=== PATIENT | female | born 1990 | race Caucasian/White ===

== ENCOUNTER 2016-07-18 20:24 | Emergency (ER) | payer MEDICAID ==
[2016-07-18 20:49] VITALS: BMI 31.4
[2016-07-18] MEDS ORDERED: Sodium Chloride 0.9% 1,000 ML IV STA (21:33)
[2016-07-18 21:59] LABS: ADD MANUAL DIFF? NO
[2016-07-18 22:14] LABS: ALB/GLOB RATIO 1.1 (1.1-1.8); ALKALINE PHOSPHATASE 136 U/L (38-133); ALT/SGPT 183 U/L (7-56); AMYLASE 67 U/L (35-125); AST/SGOT 170 U/L (15-39); BILIRUBIN,TOTAL 1.2 mg/dL (0.2-1.3); BLOOD UREA NITROGEN 17 mg/dL (7-21); CALCIUM 9.9 mg/dL (8.4-10.5); CARBON DIOXIDE 25 mmol/L (21-33); CHLORIDE 96 mmol/L (98-107); GFR AFRICAN-AMERICAN > 60; GLUCOSE,RANDOM 159 mg/dL (70-110); LIPASE 89 U/L (23-300); POTASSIUM 3.9 mmol/L (3.6-5.0); SODIUM 134 mmol/L (132-148); TOTAL PROTEIN 8.6 g/dL (5.8-8.3)
[2016-07-18 22:38] LABS: BASO # 0.02 K/mm3 (0.0-2.0); BASO % 0.2 % (0.0-3.0); EOS # 0.1 (0.0-0.7); EOS % 0.6 % (1.5-5.0); GRAN # 8.42 (1.4-6.5); GRAN % 75.6 % (50.0-68.0); HEMATOCRIT 36.8 % (36.0-48.0); LYMPH % 18.1 % (22.0-35.0); MEAN CELL VOLUME 88.7 fL (80.0-105.0); MEAN CORPUSCULAR HEMOGLOBIN 30.4 pg (25.0-35.0); MEAN CORPUSCULAR HGB CONC 34.2 g/dl (31.0-37.0); MEAN PLATELET VOLUME 10.3 fl (7.0-11.0); MONO # 0.6 (0.1-0.6); MONO % 5.5 % (1.0-6.0); PLATELET COUNT 384 10^3/uL (120.0-450.0); RED CELL DISTRIBUTION WIDTH 13.4 % (11.5-14.5); WHITE BLOOD COUNT 11.1 10^3/ul (4.5-11.0)
--- NOTE | 2016-07-18 23:05 | ED PDOC ---
Arrival/HPI - General Chief Complaint: Abdominal Pain Time Seen by Provider: 07/18/16 21:32 Historian: Patient - History of Present Illness Narrative History of Present Illness (Text): 07/18/16 23:01 26-year-old female presents today with right upper quadrant abdominal pain that has been on and off for the past few years but has worsened today. Patient states the pain is not worse with eating and does not improve after eating. Patient states the pain is constant and now wrapping around the right side of the abdomen into the back. No medications have been taken for pain at home. No vomiting or diarrhea. No appetite changes. No urinary symptoms. Denies fevers or chills. Patient states she's been trying to get an ultrasound outpatient after seeing the primary care physician but is still waiting for approval. Patient states she can't wait any longer as the pain returned today and has been constant. Time/Duration: Other (1 day) Symptom Onset: Sudden Symptom Course: Worsening Quality: Stabbing Severity Level: 8 Past Medical History - Provider Review Nursing Documentation Reviewed: Yes - Travel History Have you recently traveled outside [place] w/in the past 3 mons?: No - Past History Past History: No Previous - Infectious Disease Hx of Infectious Diseases: None - Tetanus Immunization Tetanus Immunization: Unknown - Cardiac Hx Cardiac Disorders: Yes Hx Cardiac Arrhythmia: Yes (sinus tachycardia.) Hx Congestive Heart Failure: No Hx Hypertension: Yes Hx Internal Defibrillator: No Hx Mitral Valve Prolapse: No Hx Pacemaker: No Hx Peripheral Edema: No - Pulmonary Hx Respiratory Disorders: No Hx Asthma: No Hx Bronchitis: No Hx Chronic Obstructive Pulmonary Disease (COPD): No Hx Emphysema: No - Neurological Hx Neurological Disorder: No Hx Alzheimer's Disease: No HX Cerebrovascular Accident: No Hx Dementia: No Hx Migraine: No Hx Parkinson's Disease: No Hx Seizures: No Hx Transient Ischemic Attacks (TIA): No - HEENT Hx HEENT Disorder: No Hx Blind: No Hx Cataracts: No Hx Deafness: No Hx Difficulty Chewing: No Hx Epistaxis: No Hx Glaucoma: No Hx Macular Degeneration: No - Renal Hx Renal Disorder: No Hx Renal Failure: No - Endocrine/Metabolic Hx Endocrine Disorders: Yes Hx Diabetes Mellitus Type 2: Yes - Hematological/Oncological Hx Blood Disorders: Yes Hx Anemia: Yes - Integumentary Hx Dermatological Disorder: No Hx Basal Cell Carcinoma: No Hx Eczema: No Hx Melanoma: No Hx Psoriasis: No Hx Squamous Cell Carcinoma: No - Musculoskeletal/Rheumatological Hx Musculoskeletal Disorders: No Hx Arthritis: No - Gastrointestinal Hx Gastrointestinal Disorders: No Hx Crohn's Disease: No Hx Diverticulitis: No Hx Gastroesophageal Reflux: No Hx Gastrointestinal Ulcer: No Hx Liver Failure: No - Genitourinary/Gynecological Hx Genitourinary Disorders: Yes (vaginal bleeding) Hx Sexually Transmitted Diseases: No - Psychiatric Hx Substance Use: No - Past Surgical History Past Surgical History: No Previous - Surgical History Hx Amputation: No Hx Appendectomy: No Hx Cardiac Catheterization: No Hx Cholecystectomy: No Hx Coronary Stent: No Hx Gastric Bypass Surgery: No Hx Hysterectomy: No Hx Joint Replacement: No Hx Kidney Transplant: No Hx Liver Transplant: No Hx Mastectomy: No Hx Open Heart Surgery: No Hx Orthopedic Surgery: No Hx Splenectomy: No Hx Valve Replacement: No - Anesthesia Hx Anesthesia Reactions: No Hx Malignant Hyperthermia: No - Suicidal Assessment Feels Threatened In Home Enviroment: No Family/Social History - Physician Review Nursing Documentation Reviewed: Yes Family/Social History: Unknown Family HX Smoking Status: Never Smoked Hx Alcohol Use: No Hx Substance Use: No Hx Substance Use Treatment: No Allergies/Home Meds Allergies/Adverse Reactions: Allergies No Known Allergies Allergy (Verified 05/02/16 09:05) Home Medications: Home Meds Medication Instructions Recorded Confirmed Lisinopril [Zestril] 10 mg PO DAILY 05/02/16 07/18/16 Metoprolol Villasenor/Hydrochlorothiaz 1 tab PO DAILY 05/02/16 07/18/16 [Metoprolol ER-Hctz 50-12.5 mg] metFORMIN [glucOPHAGE] 500 mg PO DAILY 05/02/16 07/18/16 Review of Systems - Review of Systems Constitutional: absent: Fatigue, Fevers Respiratory: absent: SOB, Cough Cardiovascular: absent: Chest Pain, Palpitations Gastrointestinal: Abdominal Pain. absent: Constipation, Diarrhea, Nausea, Vomiting Genitourinary Female: absent: Dysuria, Frequency, Hematuria Musculoskeletal: Back Pain. absent: Arthralgias, Neck Pain Skin: absent: Rash, Pruritis Neurological: absent: Headache, Dizziness Psychiatric: absent: Anxiety, Depression Physical Exam Vital Signs Reviewed: Yes Vital Signs Temp Pulse Resp BP Pulse Ox 07/19/16 02:29 98.4 F 100 H 18 117/73 98 07/18/16 23:03 98 H 16 126/74 99 07/18/16 20:48 97.7 F 108 H 18 128/85 99 Temperature: Afebrile Blood Pressure: Normal Pulse: Tachycardic Respiratory Rate: Normal Appearance: Positive for: Well-Appearing, Non-Toxic, Uncomfortable Pain Distress: None Mental Status: Positive for: Alert and Oriented X 3 - Systems Exam Head: Present: Atraumatic Mouth: Present: Moist Mucous Membranes Neck: Present: Normal Range of Motion Respiratory/Chest: Present: Clear to Auscultation, Good Air Exchange. No: Respiratory Distress, Accessory Muscle Use Cardiovascular: Present: Regular Rate and Rhythm, Normal S1, S2. No: Murmurs Abdomen: Present: Tenderness (+ ruq tenderness), Normal Bowel Sounds, Guarding. No: Distention, Peritoneal Signs, Rebound, McBurney's Point Tender Back: Present: Normal Inspection. No: CVA Tenderness Upper Extremity: Present: Normal ROM Lower Extremity: Present: Normal ROM Neurological: Present: GCS=15, Speech Normal Skin: Present: Warm, Dry, Normal Color. No: Rashes Psychiatric: Present: Alert, Oriented x 3 Medical Decision Making ED Course and Treatment: 07/18/16 23:04 Patient is non toxic; tachycardic presenting with RUQ abdominal pain CBC wbc; 11.1 CMP: glucose; 169 Amylase wnl Lipase wnl Urinalysis: no leukocytes. Ultrasound:FINDINGS: Liver: The liver is increased in echogenicity and size measuring 25 cm in longitudinal dimension. No intrahepatic bile duct dilation. Gallbladder: No acute findings. No gallstones. Common bile duct: No stones. No dilation, measuring 6 mm. Pancreas: Visualization of the pancreas is limited by overlying bowel gas. Right kidney: Unremarkable in echogenicity and size measuring 12.7 x 5.1 x 5.0 cm No hydronephrosis. Left Kidney: Unremarkable in echogenicity and size measuring 12.1 x 5.8 x 6.3 cm. No hydronephrosis. Spleen: Unremarkable in echogenicity and increased in size measuring 13.8 cm in greatest dimension. Aorta: Unremarkable. Inferior vena cava: patent. IMPRESSION: Fatty infiltration of an enlarged liver. Splenic enlargement. Limited evaluation of the pancreas, secondary to overlying bowel gas. CAT scan FINDINGS: Lower thorax: The bilateral lung bases are clear. ABDOMEN: Liver: Fatty infiltration of an enlarged liver is identified, consistent with patient's ultrasound. Gallbladder and bile ducts: The gallbladder is only minimally distended, without calcified stones. No significant intra- or extrahepatic biliary ductal dilation. Pancreas: Enhances homogeneously. No ductal dilation. No discrete mass. Spleen: No acute findings. Adrenals: No acute findings. Kidneys and ureters: No acute findings. No hydronephrosis or renal calculi. No discrete solid mass. PELVIS: Bladder: No acute findings. Reproductive: No acute findings. Appendix: The air filled appendix is of normal caliber (series 2, image 128). ABDOMEN and PELVIS: Stomach and bowel: Small hiatal hernia. No obstruction. No mucosal thickening. Peritoneum: No significant fluid collection. No free air. Lymph nodes: No pathologically enlarged lymph nodes. Vasculature: Unremarkable. Bones: No acute fracture. IMPRESSION: Fatty infiltration of an enlarged liver Patient reassessment: after medications, pts pain has resolved. Discussed all results with patient in depth pt with ruq abd pain with elevated lfts, ? possible kassandra, ct and US wnl; pt offered admission to the hospital for further evaluation of RUQ abd pain and elevated lfts. pt refused. wants to go home. doesnt want to stay in hospital. Patient has been advised to not leave the emergency room but has decided to go AGAINST MEDICAL ADVICE. The patient possesses capacity to make decisions and has voiced understanding to all my warnings of potential worsening of the condition for which medical care was sought. I have discussed all known and potential risks and consequences to the patient leaving AGAINST MEDICAL ADVICE. Patient is leaving against medical advise. AMA form signed. witness by NEFTALY petit. Impression: Abdominal pain, elevated liver function tests Return immediately if you wish to continue care Motrin every 6 hours as needed for pain Follow up with her GI doctor within the next 2 days Follow-up with primary care physician within the next 2 days Return immediately if symptoms worsen or persist or if new concerning symptoms develop - Lab Interpretations Lab Results: 07/18/16 21:45 07/18/16 21:45 Lab Results 07/18/16 23:10: Urine Color Yellow, Urine Appearance Sl cloudy, Urine pH 7.0, Ur Specific H[place] 1.020, Urine Protein 100 H, Urine Glucose (UA) Negative, Urine Ketones Negative, Urine Blood Negative, Urine Nitrate Negative, Urine Bilirubin Small H, Urine Urobilinogen 2.0 H, Ur Leukocyte Esterase Negative, Urine RBC 0 - 2, Urine WBC 0 - 2, Ur Epithelial Cells 3 - 4, Urine Bacteria Occ 07/18/16 21:45: WBC 11.1 H D, RBC 4.15, Hgb 12.6, Hct 36.8, MCV 88.7, MCH 30.4, MCHC 34.2, RDW 13.4, Plt Count 384, MPV 10.3, Gran % 75.6 H, Lymph % (Auto) 18.1 L, Stearns % (Auto) 5.5, Eos % (Auto) 0.6 L, Baso % (Auto) 0.2, Gran # 8.42 H , Lymph # 2.0, Stearns # 0.6, Eos # 0.1, Baso # 0.02 07/18/16 21:45: Sodium 134, Potassium 3.9, Chloride 96 L, Carbon Dioxide 25, Anion Gap 17, BUN 17, Creatinine 0.6, Est GFR ( Amer) > 60, Est GFR (Non- Af Amer) > 60, Random Glucose 159 H, Calcium 9.9, Total Bilirubin 1.2, AST 170 H , ALT 183 H, Alkaline Phosphatase 136 H, Total Protein 8.6 H, Albumin 4.5, Globulin 4.1, Albumin/Globulin Ratio 1.1, Amylase 67, Lipase 89 - RAD Interpretation Radiology Orders: 07/18/16 22:12 ABDOMEN COMPLETE [US] Stat 07/18/16 23:48 ABD & PELVIS IV CONTRAST ONLY [CT] Stat - Medication Orders Current Medication Orders: Discontinued Medications Famotidine (Pepcid) 20 mg IVP STAT STA Stop: 07/18/16 22:13 Last Admin: 07/18/16 23:45 Dose: 20 mg Sodium Chloride (Sodium Chloride 0.9%) 1,000 mls @ 999 mls/hr IV .Q1H1M STA Stop: 07/18/16 22:33 Last Admin: 07/18/16 21:56 Dose: 999 mls/hr Iohexol (Omnipaque 350 100 Ml) Confirm Administered Dose 350 mg .ROUTE .STK-MED ONE Stop: 07/19/16 00:31 Ketorolac Tromethamine (Toradol) 30 mg IVP STAT STA Stop: 07/18/16 23:03 Last Admin: 07/18/16 23:45 Dose: 30 mg Disposition/Present on Arrival - Present on Arrival Any Indicators Present on Arrival: No History of DVT/PE: No History of Uncontrolled Diabetes: No Urinary Catheter: No History of Decub. Ulcer: No History Surgical Site Infection Following: None - Disposition Have Diagnosis and Disposition been Completed?: Yes Diagnosis: Abdominal pain, Elevated liver function tests, Fatty liver Disposition: AGAINST MEDICAL ADVICE Disposition Time: 02:37 Patient Plan: Other (AMA) Patient Problems: Current Active Problems Problem Status Onset Abdominal pain Acute Elevated liver function tests Acute Fatty liver Acute Condition: FAIR Discharge Instructions (ExitCare): Non-Alcoholic Fatty Liver Disease (ED), Acute Abdominal Pain (ED) Additional Instructions: Return immediately if you wish to continue care Motrin every 6 hours as needed for pain Follow up with her GI doctor within the next 2 days Follow-up with primary care physician within the next 2 days Return immediately if symptoms worsen or persist or if new concerning symptoms develop Prescriptions: Ibuprofen [Motrin] 600 mg PO Q6H PRN #20 tab PRN Reason: pain/fever reduction Referrals: Binh Martin MD [Primary Care Provider] - Follow up with primary Nathan Pruett MD [Staff Provider] - Follow up with primary Lyndsay Maria MD [Staff Provider] - Follow up with primary Forms: WORK NOTE
[2016-07-18 23:22] LABS: URINE BILIRUBIN SMALL (NEGATIVE); URINE BLOOD NEGATIVE (NEGATIVE); URINE GLUCOSE (UA) NEGATIVE (NEGATIVE); URINE KETONE NEGATIVE (NEGATIVE); URINE LEUKOCYTE ESTERASE NEGATIVE Leu/uL (NEGATIVE); URINE PROTEIN 100 mg/dL (<30 mg/dL)
--- NOTE | 2016-07-18 23:36 | US ---
EXAM: US Abdomen Complete CLINICAL HISTORY: 26 years old, female; Pain; Abdominal pain; Generalized; Additional info: Ruq abd pain TECHNIQUE: Real-time ultrasound of the abdomen (complete) with image documentation. COMPARISON: No relevant prior studies available. FINDINGS: Liver: The liver is increased in echogenicity and size measuring 25 cm in longitudinal dimension. No intrahepatic bile duct dilation. Gallbladder: No acute findings. No gallstones. Common bile duct: No stones. No dilation, measuring 6 mm. Pancreas: Visualization of the pancreas is limited by overlying bowel gas. Right kidney: Unremarkable in echogenicity and size measuring 12.7 x 5.1 x 5.0 cm No hydronephrosis. Left Kidney: Unremarkable in echogenicity and size measuring 12.1 x 5.8 x 6.3 cm. No hydronephrosis. Spleen: Unremarkable in echogenicity and increased in size measuring 13.8 cm in greatest dimension. Aorta: Unremarkable. Inferior vena cava: patent. IMPRESSION: Fatty infiltration of an enlarged liver. Splenic enlargement. Limited evaluation of the pancreas, secondary to overlying bowel gas.
[2016-07-18 23:38] LABS: URINE APPEARANCE SL CLOUDY (CLEAR); URINE COLOR YELLOW (YELLOW)
[2016-07-18 23:42] LABS: URINE BACTERIA OCC (NEG); URINE RBC 0 - 2 /hpf (0-2); URINE WBC 0 - 2 /hpf (0-6)
[2016-07-19] MEDS ORDERED: Iohexol 350 MG/100 ML VIAL ONE (00:30)
--- NOTE | 2016-07-19 01:50 | CT ---
EXAM: CT Abdomen and Pelvis With Intravenous Contrast CLINICAL HISTORY: 26 years old, female; Pain; Abdominal pain; Generalized; Additional info: Abd pain TECHNIQUE: Axial computed tomography images of the abdomen and pelvis with intravenous contrast. This CT exam was performed using one or more of the following dose reduction techniques: automated exposure control, adjustment of the mA and/or kV according to patient size, and/or use of iterative reconstruction technique. Coronal and sagittal reformatted images were created and reviewed. CONTRAST: 96 mL of omni 350 administered intravenously. COMPARISON: US - ABDOMEN COMPLETE 07/18/2016 11:11:56 PM FINDINGS: Lower thorax: The bilateral lung bases are clear. ABDOMEN: Liver: Fatty infiltration of an enlarged liver is identified, consistent with patient's ultrasound. Gallbladder and bile ducts: The gallbladder is only minimally distended, without calcified stones. No significant intra- or extrahepatic biliary ductal dilation. Pancreas: Enhances homogeneously. No ductal dilation. No discrete mass. Spleen: No acute findings. Adrenals: No acute findings. Kidneys and ureters: No acute findings. No hydronephrosis or renal calculi. No discrete solid mass. PELVIS: Bladder: No acute findings. Reproductive: No acute findings. Appendix: The air filled appendix is of normal caliber (series 2, image 128). ABDOMEN and PELVIS: Stomach and bowel: Small hiatal hernia. No obstruction. No mucosal thickening. Peritoneum: No significant fluid collection. No free air. Lymph nodes: No pathologically enlarged lymph nodes. Vasculature: Unremarkable. Bones: No acute fracture. IMPRESSION: Fatty infiltration of an enlarged liver.
[2016-07-19 02:30] VITALS: BP 117/73; PULSE 100; RESP 18; TEMP 98.4; O2SAT 98
== END 2016-07-19 02:35 | disposition left against medical advice (07) ==
LOC: ED 20:24
DX: R10.11 Right upper quadrant pain (principal); R79.89 Other specified abnormal findings of blood chemistry; K76.0 Fatty (change of) liver, not elsewhere classified; I10 Essential (primary) hypertension; E11.9 Type 2 diabetes mellitus without complications
CPT/HCPCS: 74177; 76700; 80053; 81001; 82150; 83690; 85025; 96374; 96375; 99285; J1885; J7040; Q9967

== ENCOUNTER 2017-10-10 01:23 | Observation (INO) | payer MEDICAID ==
--- NOTE | 2017-10-10 01:50 | ED PDOC ---
Arrival/HPI - General Chief Complaint: Palpitations Time Seen by Provider: 10/10/17 01:39 Historian: Patient - History of Present Illness Narrative History of Present Illness (Text): 10/10/17 01:47 A 27 year old female, whose past medical history includes hypertension and diabetes, presents to the Emergency Department with a complaint of palpitations. The patient states that she was sleeping and got out of bed to walk to the bathroom and felt very nauseous and began to feel the heart palpitations. The patient denies fevers, chills, headache, dizziness, sore throat, cough, chest pain, shortness of breath, dyspnea on exertion, abdominal pain, vomiting, diarrhea, neck/back pain, urinary/bowel changes or any other complaint. PMD: Dr. Martin Time/Duration: Prior to Arrival Symptom Onset: Sudden Symptom Course: Unchanged Activities at Onset: Rest, Light Context: Home Past Medical History - Provider Review Nursing Documentation Reviewed: Yes - Past History Past History: No Previous - Infectious Disease Hx of Infectious Diseases: None - Tetanus Immunization Tetanus Immunization: Unknown - Reproductive Menopause: No - Cardiac Hx Cardiac Disorders: Yes Hx Cardiac Arrhythmia: Yes (sinus tachycardia.) Hx Congestive Heart Failure: No Hx Hypertension: Yes Hx Internal Defibrillator: No Hx Mitral Valve Prolapse: No Hx Pacemaker: No Hx Peripheral Edema: No - Pulmonary Hx Respiratory Disorders: No Hx Asthma: No Hx Bronchitis: No Hx Chronic Obstructive Pulmonary Disease (COPD): No Hx Emphysema: No - Neurological Hx Neurological Disorder: No Hx Alzheimer's Disease: No HX Cerebrovascular Accident: No Hx Dementia: No Hx Migraine: No Hx Parkinson's Disease: No Hx Seizures: No Hx Transient Ischemic Attacks (TIA): No - HEENT Hx HEENT Disorder: No Hx Blind: No Hx Cataracts: No Hx Deafness: No Hx Difficulty Chewing: No Hx Epistaxis: No Hx Glaucoma: No Hx Macular Degeneration: No - Renal Hx Renal Disorder: No Hx Renal Failure: No - Endocrine/Metabolic Hx Endocrine Disorders: Yes Hx Diabetes Mellitus Type 2: Yes - Hematological/Oncological Hx Blood Disorders: Yes Hx Anemia: Yes - Integumentary Hx Dermatological Disorder: No Hx Basal Cell Carcinoma: No Hx Eczema: No Hx Melanoma: No Hx Psoriasis: No Hx Squamous Cell Carcinoma: No - Musculoskeletal/Rheumatological Hx Musculoskeletal Disorders: No Hx Arthritis: No - Gastrointestinal Hx Gastrointestinal Disorders: No Hx Crohn's Disease: No Hx Diverticulitis: No Hx Gastroesophageal Reflux: No Hx Gastrointestinal Ulcer: No Hx Liver Failure: No - Genitourinary/Gynecological Hx Genitourinary Disorders: Yes (vaginal bleeding) Hx Sexually Transmitted Diseases: No - Psychiatric Hx Substance Use: No - Past Surgical History Past Surgical History: No Previous - Surgical History Hx Amputation: No Hx Appendectomy: No Hx Cardiac Catheterization: No Hx Cholecystectomy: No Hx Coronary Stent: No Hx Gastric Bypass Surgery: No Hx Hysterectomy: No Hx Joint Replacement: No Hx Kidney Transplant: No Hx Liver Transplant: No Hx Mastectomy: No Hx Open Heart Surgery: No Hx Orthopedic Surgery: No Hx Splenectomy: No Hx Valve Replacement: No - Anesthesia Hx Anesthesia Reactions: No Hx Malignant Hyperthermia: No - Suicidal Assessment Feels Threatened In Home Enviroment: No Family/Social History - Physician Review Nursing Documentation Reviewed: Yes Family/Social History: No Known Family HX Smoking Status: Never Smoked Hx Alcohol Use: No Hx Substance Use: No Hx Substance Use Treatment: No Allergies/Home Meds Allergies/Adverse Reactions: Allergies No Known Allergies Allergy (Verified 05/02/16 09:05) Home Medications: Home Meds Medication Instructions Recorded Confirmed Lisinopril [Zestril] 10 mg PO DAILY 05/02/16 07/18/16 Metoprolol Villasenor/Hydrochlorothiaz 1 tab PO DAILY 05/02/16 07/18/16 [Metoprolol ER-Hctz 50-12.5 mg] metFORMIN [glucOPHAGE] 500 mg PO DAILY 05/02/16 07/18/16 Review of Systems - Physician Review All systems were reviewed & negative as marked: Yes - Review of Systems Constitutional: absent: Fevers Respiratory: absent: SOB, Cough Cardiovascular: Palpitations. absent: Chest Pain, KIRBY Gastrointestinal: Nausea. absent: Abdominal Pain, Stool Changes, Diarrhea, Vomiting Genitourinary Female: absent: Urine Output Changes Musculoskeletal: absent: Back Pain, Neck Pain Neurological: absent: Headache, Dizziness Physical Exam Vital Signs Reviewed: Yes Vital Signs Temp Pulse Resp BP Pulse Ox 10/10/17 04:57 98.1 F 117 H 16 111/70 100 10/10/17 01:30 97.9 F 121 H 16 123/84 99 Temperature: Afebrile Blood Pressure: Normal Pulse: Tachycardic Respiratory Rate: Normal Appearance: Positive for: Well-Appearing, Non-Toxic, Comfortable Pain Distress: None Mental Status: Positive for: Alert and Oriented X 3 - Systems Exam Head: Present: Atraumatic, Normocephalic Pupils: Present: PERRL Extroacular Muscles: Present: EOMI Conjunctiva: Present: Normal Mouth: Present: Moist Mucous Membranes Neck: Present: Normal Range of Motion Respiratory/Chest: Present: Clear to Auscultation, Good Air Exchange. No: Respiratory Distress, Accessory Muscle Use Cardiovascular: Present: Normal S1, S2, Tachycardic. No: Murmurs Abdomen: No: Tenderness, Distention, Peritoneal Signs Back: Present: Normal Inspection Upper Extremity: Present: Normal Inspection. No: Cyanosis, Edema Lower Extremity: Present: Normal Inspection. No: Edema Neurological: Present: GCS=15, CN II-XII Intact, Speech Normal Skin: Present: Warm, Dry, Normal Color. No: Rashes Psychiatric: Present: Alert, Oriented x 3, Normal Insight, Normal Concentration Medical Decision Making ED Course and Treatment: 10/10/17 01:51 Impression: A 27 year old female presents to the Emergency Department with a complaint of sudden onset of palpitations and nausea this evening. Plan: -- EKG -- CXR -- Labs -- Reassess and disposition Progress Notes: EKG: Ordered, reviewed, and independently interpreted the EKG. Rate : 112 BPM Rhythm : Sinus Tachycardia Interpretation : Anterolateral ST- T changes. 10/10/17 05:09: Case discussed in detail with Dr. Olson who accepts patient to the hospitalist's service. - Lab Interpretations Lab Results: 10/10/17 02:15 10/10/17 02:15 Lab Results 10/10/17 02:15: WBC 8.3 D, RBC 4.30, Hgb 13.7, Hct 37.2, MCV 86.5, MCH 31.9, MCHC 36.8, RDW 12.9, Plt Count 292, MPV 10.0 10/10/17 02:15: Sodium 138, Potassium 3.4 L, Chloride 99, Carbon Dioxide 24, Anion Gap 19, BUN 12, Creatinine 0.4 L, Est GFR ( Amer) > 60, Est GFR ( Non-Af Amer) > 60, Random Glucose 254 H, Calcium 9.9, Total Bilirubin 0.7, AST 186 H, ALT 213 H, Alkaline Phosphatase 217 H, Lactate Dehydrogenase 547, Total Creatine Kinase 51, Troponin I < 0.01, Total Protein 8.4 H, Albumin 4.4, Globulin 4.0, Albumin/Globulin Ratio 1.1 10/10/17 02:15: PT 12.6 H, INR 1.10, APTT 31.3, D-Dimer, Quantitative < 200 I have reviewed the lab results: Yes - RAD Interpretation Radiology Orders: 10/10/17 01:47 CHEST PORTABLE [RAD] Stat - EKG Interpretation Interpreted by ED Physician: Yes Type: 12 lead EKG - Medication Orders Current Medication Orders: Discontinued Medications Potassium Chloride (K-Dur 20 Meq Er Tab) 20 meq PO STAT STA Stop: 10/10/17 05:03 - Scribe Statement The provider has reviewed the documentation as recorded by the Yohana Santana Provider Scribe Attestation: All medical record entries made by the Scribe were at my direction and personally dictated by me. I have reviewed the chart and agree that the record accurately reflects my personal performance of the history, physical exam, medical decision making, and the department course for this patient. I have also personally directed, reviewed, and agree with the discharge instructions and disposition. Disposition/Present on Arrival - Present on Arrival Any Indicators Present on Arrival: No History of DVT/PE: No History of Uncontrolled Diabetes: No Urinary Catheter: No History of Decub. Ulcer: No History Surgical Site Infection Following: None - Disposition Have Diagnosis and Disposition been Completed?: Yes Diagnosis: Tachycardia Disposition: HOSPITALIZED Disposition Time: 05:14 Patient Plan: Observation Condition: STABLE Forms: [employer] ([place])
[2017-10-10 02:28] LABS: HEMOGLOBIN 13.7 g/dL (12.0-16.0); MEAN CELL VOLUME 86.5 fl (80.0-105.0); MEAN CORPUSCULAR HEMOGLOBIN 31.9 pg (25.0-35.0); MEAN CORPUSCULAR HGB CONC 36.8 g/dl (31.0-37.0); RBC 4.3 10^6/uL (3.5-6.1); RED CELL DISTRIBUTION WIDTH 12.9 % (11.5-14.5); WHITE BLOOD COUNT 8.3 10^3/ul (4.5-11.0)
[2017-10-10 02:34] LABS: ALB/GLOB RATIO 1.1 (1.1-1.8); ALBUMIN 4.4 g/dL (3.0-4.8); ALT/SGPT 213 U/L (7-56); AST/SGOT 186 U/L (14-36); BLOOD UREA NITROGEN 12 mg/dL (7-21); CALCIUM 9.9 mg/dL (8.4-10.5); GFR AFRICAN-AMERICAN > 60; GFR NON-AFRICAN AMERICAN > 60
[2017-10-10 02:43] LABS: PARTIAL THROMBOPLASTIN TIME 31.3 Seconds (25.1-36.5); PROTHROMBIN TIME 12.6 SECONDS (9.4-12.5)
[2017-10-10 02:46] LABS: TROPONIN I < 0.01 ng/mL
[2017-10-10 02:55] LABS: D DIMER < 200 mg/L DDU (0-243)
[2017-10-10] MEDS ORDERED: Potassium Chloride 20 mEq ER Tab PO STA (05:02)
[2017-10-10 08:05] LABS: BASO # 0.01 K/mm3 (0.0-2.0); BASO % 0.1 % (0.0-3.0); EOS % 0.5 % (1.5-5.0); GRAN # 5.53 (1.4-6.5); GRAN % 64.8 % (50.0-68.0); HEMOGLOBIN 12.2 g/dL (12.0-16.0); LYMPH # 2.7 (1.2-3.4); MEAN CELL VOLUME 85.6 fl (80.0-105.0); MEAN CORPUSCULAR HEMOGLOBIN 30.3 pg (25.0-35.0); MEAN CORPUSCULAR HGB CONC 35.5 g/dl (31.0-37.0); MEAN PLATELET VOLUME 9.6 fl (7.0-11.0); MONO # 0.3 (0.1-0.6); MONO % 3.6 % (1.0-6.0); RBC 4.02 10^6/uL (3.5-6.1); RED CELL DISTRIBUTION WIDTH 12.7 % (11.5-14.5); WHITE BLOOD COUNT 8.5 10^3/ul (4.5-11.0)
[2017-10-10] MEDS: Insulin Reg-LOW-Coverage SC SCH ×4 (08:07→22:26)
[2017-10-10 08:31] LABS: ALB/GLOB RATIO 1.2 (1.1-1.8); ALBUMIN 4.2 g/dL (3.0-4.8); ALT/SGPT 199 U/L (7-56); AST/SGOT 175 U/L (14-36); BLOOD UREA NITROGEN 8 mg/dL (7-21); CALCIUM 9.3 mg/dL (8.4-10.5); GFR AFRICAN-AMERICAN > 60; GFR NON-AFRICAN AMERICAN > 60; HDL CHOLESTEROL 35 mg/dL (29-60); LDL CHOLESTEROL 123 mg/dL (0-129)
--- NOTE | 2017-10-10 09:16 | CP.PCM.HP ---
<Roland Gomez - Last Filed: 10/10/17 16:34> History of Present Illness - History of Present Illness History of Present Illness: HISTORY & PHYSICAL NOTE FOR HOSPITALIST TEAM Roland Gomez D.O. PGY-1 CC: Chest palpitations x 1 without chest pain, shortness of breath, diophoresis 27 y/o F with pmhx of HTN, DM2 presented to ED with complaints of new onset palpitations that had began yesterday night with associated weakness. She first noticed palpitations while getting out of bed. She denies any history of anxiety or panic attacks. She denies complaints of chest pain, discomfort or diophoresis. She reports that she had a similar event 1 week prior, but the symptoms resolved after rest. She denies onset of symptoms with exertion. She reports compliance with her cardiac medications, however is noncompliant with diabetic meds. She denies fevers, chills, vomiting, headache, dizziness, numbness, tingling, shortness of breath, constipation, diarrhea. PMD: Dr. Duarte PMH: HTN, DM PSH: Denies SH: Denies smoking, alcohol or illicit drug use. Allergies: NKDA Meds: Metformin 500mg, valsartan/hctz 50/12.5, control Present on Admission - Present on Admission Any Indicators Present on Admission: No Review of Systems - Review of Systems All systems: reviewed and no additional remarkable complaints except (as per HPI. otherwise negative) Past Patient History - Infectious Disease Hx of Infectious Diseases: None - Tetanus Immunizations Tetanus Immunization: Unknown - Past Social History Smoking Status: Never Smoked - CARDIAC Hx Cardiac Disorders: Yes Hx Cardia Arrhythmia: Yes (sinus tachycardia.) Hx Congestive Heart Failure: No Hx Hypertension: Yes Hx Internal Defibrillator: No Hx Mitral Valve Prolapse: No Hx Pacemaker: No Hx Peripheral Edema: No - PULMONARY Hx Respiratory Disorders: No Hx Asthma: No Hx Bronchitis: No Hx Chronic Obstructive Pulmonary Disease (COPD): No Hx Emphysema: No - NEUROLOGICAL Hx Neurological Disorder: No Hx Alzheimer's Disease: No HX Cerebrovascular Accident: No Hx Dementia: No Hx Migraine: No Hx Parkinson's Disease: No Hx Seizures: No Hx Transient Ischemic Attacks (TIA): No - HEENT Hx HEENT Problems: No Hx Blind: No Hx Cataracts: No Hx Deafness: No Hx Difficulty Chewing: No Hx Epistaxis: No Hx Glaucoma: No Hx Macular Degeneration: No - RENAL Hx Chronic Kidney Disease: No Hx Renal Failure: No - ENDOCRINE/METABOLIC Hx Endocrine Disorders: Yes Hx Diabetes Mellitus Type 2: Yes - HEMATOLOGICAL/ONCOLOGICAL Hx Blood Disorders: Yes Hx Anemia: Yes - INTEGUMENTARY Hx Dermatological Problems: No Hx Basil Cell: No Hx Eczema: No Hx Melanoma: No Hx Psoriasis: No Hx Squamous Cell: No - MUSCULOSKELETAL/RHEUMATOLOGICAL Hx Musculoskeletal Disorders: No Hx Arthritis: No - GASTROINTESTINAL Hx Gastrointestinal Disorders: No Hx Crohn's Disease: No Hx Diverticulitis: No Hx Gastroesophageal Reflux: No Hx Liver Failure: No - GENITOURINARY/GYNECOLOGICAL Hx Genitourinary Disorders: Yes (vaginal bleeding) Hx Sexually Transmitted Disorders: No - PSYCHIATRIC Hx Substance Use: No - SURGICAL HISTORY Hx Amputation: No Hx Appendectomy: No Hx Cardiac Catheterization: No Hx Cholecystectomy: No Hx Coronary Stent: No Hx Gastric Bypass Surgery: No Hx Hysterectomy: No Hx Joint Replacement: No Hx Kidney Transplant: No Hx Liver Transplant: No Hx Mastectomy: No Hx Open Heart Surgery: No Hx Orthopedic Surgery: No Hx Splenectomy: No Hx Valve Replacement: No - ANESTHESIA Hx Anesthesia Reactions: No Hx Malignant Hyperthermia: No Meds Allergies/Adverse Reactions: Allergies Allergy/AdvReac Type Severity Reaction Status Date / Time No Known Allergies Allergy Verified 05/02/16 09:05 Physical Exam - Constitutional Appears: Well, No Acute Distress - Head Exam Head Exam: ATRAUMATIC, NORMAL INSPECTION - Eye Exam Eye Exam: EOMI, Normal appearance - ENT Exam ENT Exam: Mucous Membranes Moist, Normal Exam - Neck Exam Neck exam: Positive for: Normal Inspection. Negative for: Meningismus - Respiratory Exam Respiratory Exam: Clear to Auscultation Bilateral, NORMAL BREATHING PATTERN - Cardiovascular Exam Cardiovascular Exam: Tachycardia, +S1, +S2 - GI/Abdominal Exam GI & Abdominal Exam: Normal Bowel Sounds, Soft. absent: Tenderness - Neurological Exam Neurological exam: Alert, CN II-XII Intact, Oriented x3 - Psychiatric Exam Psychiatric exam: Normal Affect, Normal Mood - Skin Skin Exam: Dry, Intact, Warm Results - Vital Signs Recent Vital Signs: Last Vital Signs Temp 98.3 F 10/10/17 06:45 Pulse 97 H 10/10/17 06:45 Resp 20 10/10/17 06:45 BP 117/71 10/10/17 06:45 Pulse Ox 96 10/10/17 06:45 - Labs Result Diagrams: 10/10/17 07:40 10/10/17 07:40 Labs: Laboratory Results - last 24 hr 10/10/17 10/10/17 10/10/17 06:22 07:40 07:40 WBC 8.5 RBC 4.02 Hgb 12.2 Hct 34.4 L MCV 85.6 MCH 30.3 MCHC 35.5 RDW 12.7 Plt Count 278 MPV 9.6 Gran % 64.8 Lymph % (Auto) 31.0 Reeves % (Auto) 3.6 Eos % (Auto) 0.5 L Baso % (Auto) 0.1 Gran # 5.53 Lymph # (Auto) 2.7 Reeves # (Auto) 0.3 Eos # (Auto) 0.0 Baso # (Auto) 0.01 Sodium 138 Potassium 3.8 Chloride 102 Carbon Dioxide 23 Anion Gap 17 BUN 8 Creatinine 0.3 L Est GFR ( Amer) > 60 Est GFR (Non-Af Amer) > 60 Random Glucose 229 H Calcium 9.3 Phosphorus 3.7 Magnesium 1.6 L Total Bilirubin 0.6 AST 175 H ALT 199 H Alkaline Phosphatase 179 H Total Protein 7.8 Albumin 4.2 Globulin 3.6 Albumin/Globulin Ratio 1.2 Triglycerides 250 H Cholesterol 202 H LDL Cholesterol Direct 123 HDL Cholesterol 35 TSH 3rd Generation Urine HCG, Qual Negative 10/10/17 07:40 WBC RBC Hgb Hct MCV MCH MCHC RDW Plt Count MPV Gran % Lymph % (Auto) Reeves % (Auto) Eos % (Auto) Baso % (Auto) Gran # Lymph # (Auto) Reeves # (Auto) Eos # (Auto) Baso # (Auto) Sodium Potassium Chloride Carbon Dioxide Anion Gap BUN Creatinine Est GFR ( Amer) Est GFR (Non-Af Amer) Random Glucose Calcium Phosphorus Magnesium Total Bilirubin AST ALT Alkaline Phosphatase Total Protein Albumin Globulin Albumin/Globulin Ratio Triglycerides Cholesterol LDL Cholesterol Direct HDL Cholesterol TSH 3rd Generation 1.61 Urine HCG, Qual Assessment & Plan - Assessment and Plan (Free Text) Assessment: 27 y/o F with pmhx of HTN, DM2 admitted for palpitations and ACS r/o. Pt presented to ED after 1 night of symptoms. She was seen in ED with pulse in 110- 120 bpm rate. Initial troponin levels in ED were negative. EKG showed t-wave changes. Pt was saturating comfortably in 95% RA in no distress. Plan: 1. Sinus tachycardia Pt symptomatic with palpitations in no apparent distress. Hemodynamically stable EKG showed new t wave changes D-dimer (-) Continue home metoprolol Cardio consult: Dr. Case 2. Transaminitis RUQ ultrasound Monitor LFTs 3. Hypertension Continue home lisinopril Continue home metoprolol Continue home valsartan/hctz Heart healthy diet 4. Diabetes Hold metformin for imaging studies Start sliding scale insulin GI/DVT ppx: protonix/lovenox Case discussed with and reviewed with attending physician, Dr. Olson <Kervin Olson - Last Filed: 10/12/17 02:54> Results - Vital Signs Recent Vital Signs: Last Vital Signs Temp 98.2 F 10/11/17 12:00 Pulse 75 10/11/17 12:00 Resp 22 10/11/17 12:00 BP 115/78 10/11/17 12:00 Pulse Ox 96 10/11/17 06:00 - Labs Result Diagrams: 10/11/17 06:00 10/11/17 06:00 Labs: Laboratory Results - last 24 hr 10/11/17 10/11/17 10/11/17 06:00 06:00 07:49 WBC 7.5 RBC 4.27 Hgb 13.0 Hct 37.1 MCV 86.9 MCH 30.4 MCHC 35.0 RDW 13.0 Plt Count 304 MPV 10.0 Gran % 59.0 Lymph % (Auto) 35.6 H Reeves % (Auto) 4.1 Eos % (Auto) 1.2 L Baso % (Auto) 0.1 Gran # 4.42 Lymph # (Auto) 2.7 Reeves # (Auto) 0.3 Eos # (Auto) 0.1 Baso # (Auto) 0.01 Sodium 138 Potassium 4.0 Chloride 100 Carbon Dioxide 23 Anion Gap 19 BUN 11 Creatinine 0.4 L Est GFR ( Amer) > 60 Est GFR (Non-Af Amer) > 60 POC Glucose (mg/dL) 197 H Random Glucose 250 H Calcium 9.6 Total Bilirubin 0.9 AST 295 H D ALT 285 H Alkaline Phosphatase 172 H Total Protein 7.6 Albumin 4.1 Globulin 3.4 Albumin/Globulin Ratio 1.2 10/11/17 11:42 WBC RBC Hgb Hct MCV MCH MCHC RDW Plt Count MPV Gran % Lymph % (Auto) Reeves % (Auto) Eos % (Auto) Baso % (Auto) Gran # Lymph # (Auto) Reeves # (Auto) Eos # (Auto) Baso # (Auto) Sodium Potassium Chloride Carbon Dioxide Anion Gap BUN Creatinine Est GFR ( Amer) Est GFR (Non-Af Amer) POC Glucose (mg/dL) 213 H Random Glucose Calcium Total Bilirubin AST ALT Alkaline Phosphatase Total Protein Albumin Globulin Albumin/Globulin Ratio Attending/Attestation - Attestation I have personally seen and examined this patient.: Yes I have fully participated in the care of the patient.: Yes I have reviewed all pertinent clinical information: Yes Notes (Text): 10/12/17 02:53 Patient was seen when she was in the ER. Agree with history, physical examination, assessment and plan.
[2017-10-10] MEDS: Enoxaparin 40 mg Syringe SC SCH (09:47)
[2017-10-10] MEDS: Metoprolol Succinate 50 mg XL Tab PO SCH ×2 (09:48→09:59)
[2017-10-10] MEDS ORDERED: METOPROLOL SU PO SCH (10:00)
[2017-10-10] MEDS ORDERED: HYDROCHLOROTHIAZ PO SCH (10:00)
[2017-10-10] MEDS ORDERED: [UNRECOGNIZED DRUG - OTHER] PO SCH (10:00)
[2017-10-10 10:26] VITALS: BMI 38.5
[2017-10-10] MEDS ORDERED: Pantoprazole 40 mg EC Tab PO SCH (11:45)
--- NOTE | 2017-10-10 11:49 | CARD ---
APPROVED REPORT Date of service: 10/10/2017 EKG Measurement Heart [id number] <Conclusion> Sinus tachycardia Nonspecific ST and T wave abnormality Abnormal ECG
[2017-10-10] MEDS ORDERED: Magnesium Sulfate 1 gm in D5W 1 GM/100 ML BAG IVPB ONE (11:54)
--- NOTE | 2017-10-10 12:25 | RAD ---
Date of service: 10/10/2017 HISTORY: palpitations COMPARISON: 06/25/2013 FINDINGS: LUNGS: No active pulmonary disease. PLEURA: No significant pleural effusion identified, no pneumothorax apparent. CARDIOVASCULAR: Normal. OSSEOUS STRUCTURES: No significant abnormalities. VISUALIZED UPPER ABDOMEN: Normal. OTHER FINDINGS: None. IMPRESSION: No active disease.
[2017-10-10 13:00] LABS: HEPATITIS B SURFACE AG Negative (NEGATIVE)
[2017-10-10 13:05] LABS: HEPATITIS A IGM NEGATIVE (NEGATIVE); HEPATITIS B CORE AB NEGATIVE (NEGATIVE)
[2017-10-10 13:17] LABS: HEPATITIS C ANTIBODY NEGATIVE (NEGATIVE)
--- NOTE | 2017-10-10 13:26 | US ---
Date of service: 10/10/2017 HISTORY: abnormal LFT COMPARISON: None. TECHNIQUE: Sonographic evaluation of the abdomen. FINDINGS: LIVER: Measures 22.9 cm. Diffusely increased echogenicity of the liver parenchyma. Consistent with fatty infiltration. Smooth contour. No mass. No biliary ductal dilatation. Normal hepatopetal portal venous flow. GALLBLADDER: Cholelithiasis. No mural thickening. No pericholecystic fluid. Negative sonographic Sexton sign. COMMON BILE DUCT: Measures 8 mm. Mildly dilated for patient age. No associated intrahepatic biliary ductal dilatation. Uncertain significance. Correlate with laboratory evaluation. PANCREAS: Unremarkable as visualized. No mass. No ductal dilatation. RIGHT KIDNEY: Measures 13.0cm. Normal echogenicity. No calculus, mass, or hydronephrosis. LEFT KIDNEY: Measures 12.9cm. Normal echogenicity. No calculus, mass, or hydronephrosis. SPLEEN: Normal in size and contour. No mass. AORTA: No aneurysmal dilatation. IVC: Unremarkable. OTHER FINDINGS: None. IMPRESSION: Hepatomegaly with diffuse fatty infiltration. No intrahepatic biliary dilatation. Minimal dilatation of the common bile duct, of uncertain significance. Please correlate with laboratory evaluation. Cholelithiasis without evidence of cholecystitis. No additional abnormality.
[2017-10-10 14:32] LABS: BARBITURATES, UR NEGATIVE (NEGATIVE); BENZODIAZEPINES, UR NEGATIVE (NEGATIVE); OPIATES, UR NEGATIVE (NEGATIVE); PHENCYCLIDINE, UR NEGATIVE (NEGATIVE)
--- NOTE | 2017-10-10 14:44 | CARD ---
APPROVED REPORT Date of service: 10/10/2017 EXAM: Two-dimensional and M-mode echocardiogram with Doppler and color Doppler. INDICATION Chest Pain Palpitations 2D DIMENSIONS IVSd0.9 (0.7-1.1cm)LVDd4.4 (3.9-5.9cm) PWd0.9 (0.7-1.1cm)LVDs3.2 (2.5-4.0cm) FS (%) 26.8 %LVEF (%)52.6 (>50%) M-Mode DIMENSIONS Aortic Root3.00 (2.2-3.7cm)Aortic Cusp Exc.1.70 (1.5-2.0cm) Aortic Valve AoV Peak Npeuqrcq319.0cm/Julio Peak GR.8mmHg Mitral Valve MV E Kpeszhcr898.0cm/sMV A Usvddvfz79.4cm/sE/A ratio1.2 TDI Lateral E' Peak V14.80cm/sMedial E' Peak V8.87cm/sE/Lateral E'7.2 E/Medial E'12.1 Pulmonary Valve PV Peak Nwrqxnys67.9cm/sPV Peak Grad.3mmHg Tricuspid Valve TR Peak Hnksrdmx863ag/sRAP [id number] Peak Gr.17mmHg [id number] LEFT VENTRICLE The left ventricle is normal size. There is normal left ventricular wall thickness. Left ventricle systolic function is borderline. Apical hypokinesis The left ventricular diastolic function is normal. RIGHT VENTRICLE The right ventricle is normal size. There is normal right ventricular wall thickness. The right ventricular systolic function is normal. ATRIA The left atrium size is normal. The right atrium size is normal. AORTIC VALVE The aortic valve is normal in structure. No aortic regurgitation is present. There is no aortic valvular stenosis. MITRAL VALVE The mitral valve is normal in structure. Mitral regurgitation is trace. There is no mitral valve stenosis. TRICUSPID VALVE The tricuspid valve is normal in structure. There is trace tricuspid regurgitation. PULMONIC VALVE The pulmonary valve is normal in structure. There is no pulmonic valvular regurgitation. GREAT VESSELS The aortic root is normal in size. PERICARDIAL EFFUSION There is no pericardial effusion. <Conclusion> The left ventricle is normal size. There is normal left ventricular wall thickness. Left ventricle systolic function is borderline. Apical hypokinesis The left ventricular diastolic function is normal.
--- NOTE | 2017-10-10 15:35 | CARD ---
APPROVED REPORT Date of service: 10/10/2017 EKG Measurement Heart [id number] <Conclusion> Sinus tachycardia ST & T wave abnormality, consider anterolateral ischemia Abnormal ECG
--- NOTE | 2017-10-10 17:58 | CARD ---
APPROVED REPORT Date of service: 10/10/2017 EKG Measurement Heart [id number] NM 136P5 [id number] <Conclusion> Normal sinus rhythm Normal ECG
--- NOTE | 2017-10-10 19:16 | CON ---
Copied To: Cristina Case MD Attending MD: Cristina Case MD DATE: 10/10/2017 LOCATION: The patient is in room 267, bed 2. REASON FOR CONSULTATION: Palpitation, hypertension, diabetes mellitus. HISTORY OF PRESENT ILLNESS: This is a 27-year-old female, known hypertensive, diabetes, obesity, admitted with complaints of palpitation and found to have sinus tachycardia. Denies any chest pain, shortness of breath, dizziness or syncope. She states that she feels weak. She sees Dr. Martin in [place] who is a through operator and she had echo done in 03/2017 which as per her information was normal. The patient also mentioned that she had acid reflux, but is not taking any medications for that. PAST MEDICAL HISTORY: Positive for hypertension, diabetes mellitus, and she had twice D and C. ALLERGIES: THE PATIENT DENIES ANY ALLERGIES. FAMILY HISTORY: Positive for diabetes and hypertension. MEDICATIONS AT HOME: The patient was taking metformin 500 mg b.i.d., Lopressor ER 50 with hydrochlorothiazide 25 mg once a day and was also taking Diovan 40 mg daily. REVIEW OF SYSTEMS: All the systems reviewed, positive mentioned in the history, others are negative. The patient has no history of exertional chest pain or shortness of breath. PHYSICAL EXAMINATION: VITAL SIGNS: Blood pressure is 107/73, respiration 18, pulse is 100. On admission, pulse was around 116 per minute, temperature 98.3. HEENT: Head is normocephalic. Eyes; pupils normal, conjunctivae normal. Nose and throat normal. NECK: JVP is low. Carotid equal. THORAX: AP diameter normal. LUNGS: Clear. CARDIOVASCULAR: S1 and S2. ABDOMEN: Soft and nontender. No organomegaly. Bowel sounds normal. EXTREMITIES: No clubbing. No cyanosis. LABORATORY DATA: WBC 8.5, hemoglobin 12.2, hematocrit 34.4, platelet 278. Sodium 138, potassium 3.8, BUN 8, creatinine 0.3, random glucose 229. AST 175, ALT 199, alkaline phosphatase 179. Magnesium 1.6, TSH 1.61, triglyceride 250, cholesterol 202, LDL 123, HDL 35. Chest x-ray is clear. EKG showed sinus tachycardia, some T inversions were seen. DIAGNOSES: Sinus tachycardia, diabetes mellitus, hypertension, obesity, abnormal liver function test, high triglyceride, high cholesterol. PLAN: We will stop the patient's Lopressor and replace it with atenolol 25 mg stat dose daily and we will monitor the heart rate. The patient already had echo in 03/2017 with her through operator, Dr. Martin in [place] and she follows with him regularly and she will follow with him also about the stress test. The patient went for abdominal ultrasound today. We will follow that and we will follow closely with you. Also, advised the patient to lose weight. Cristina Case MD
[2017-10-11 06:16] VITALS: O2SAT 96
[2017-10-11 06:23] LABS: BASO # 0.01 K/mm3 (0.0-2.0); BASO % 0.1 % (0.0-3.0); EOS # 0.1 (0.0-0.7); EOS % 1.2 % (1.5-5.0); GRAN # 4.42 (1.4-6.5); LYMPH # 2.7 (1.2-3.4); LYMPH % 35.6 % (22.0-35.0); MEAN CELL VOLUME 86.9 fl (80.0-105.0); MEAN CORPUSCULAR HEMOGLOBIN 30.4 pg (25.0-35.0); MONO # 0.3 (0.1-0.6); MONO % 4.1 % (1.0-6.0); RBC 4.27 10^6/uL (3.5-6.1); WHITE BLOOD COUNT 7.5 10^3/ul (4.5-11.0)
[2017-10-11 06:41] LABS: BLOOD UREA NITROGEN 11 mg/dL (7-21); GFR AFRICAN-AMERICAN > 60; GFR NON-AFRICAN AMERICAN > 60
[2017-10-11 06:42] LABS: ALB/GLOB RATIO 1.2 (1.1-1.8); ALBUMIN 4.1 g/dL (3.0-4.8); ALT/SGPT 285 U/L (7-56); AST/SGOT 295 U/L (14-36); CALCIUM 9.6 mg/dL (8.4-10.5)
[2017-10-11] MEDS ORDERED: Pantoprazole 40 mg EC Tab PO SCH (07:30)
[2017-10-11] MEDS: Insulin Reg-MEDIUM-Coverage SC SCH ×2 (08:00→13:19)
[2017-10-11] MEDS: Enoxaparin 40 mg Syringe SC SCH (09:45)
[2017-10-11 12:03] VITALS: BP 115/78; PULSE 75; RESP 22; TEMP 98.2
--- NOTE | 2017-10-11 12:24 | CP.PCM.DIS ---
<Hammad Rodriguez - Last Filed: 10/11/17 13:40> Provider - Provider Date of Admission: 10/10/17 05:10 Attending physician: Cristina Alejo MD Primary care physician: Binh Martin MD Consults: cardio - Dr. Case Time Spent in preparation of Discharge (in minutes): 45 Hospital Course - Lab Results Lab Results: Most Recent Lab Values WBC 7.5 10^3/ul (4.5-11.0) 10/11/17 06:00 RBC 4.27 10^6/uL (3.5-6.1) 10/11/17 06:00 Hgb 13.0 g/dL (12.0-16.0) 10/11/17 06:00 Hct 37.1 % (36.0-48.0) 10/11/17 06:00 MCV 86.9 fl (80.0-105.0) 10/11/17 06:00 MCH 30.4 pg (25.0-35.0) 10/11/17 06:00 MCHC 35.0 g/dl (31.0-37.0) 10/11/17 06:00 RDW 13.0 % (11.5-14.5) 10/11/17 06:00 Plt Count 304 10^3/uL (120.0-450.0) 10/11/17 06:00 MPV 10.0 fl (7.0-11.0) 10/11/17 06:00 Gran % 59.0 % (50.0-68.0) 10/11/17 06:00 Lymph % (Auto) 35.6 % (22.0-35.0) H 10/11/17 06:00 Wolfe % (Auto) 4.1 % (1.0-6.0) 10/11/17 06:00 Eos % (Auto) 1.2 % (1.5-5.0) L 10/11/17 06:00 Baso % (Auto) 0.1 % (0.0-3.0) 10/11/17 06:00 Gran # 4.42 (1.4-6.5) 10/11/17 06:00 Lymph # (Auto) 2.7 (1.2-3.4) 10/11/17 06:00 Wolfe # (Auto) 0.3 (0.1-0.6) 10/11/17 06:00 Eos # (Auto) 0.1 (0.0-0.7) 10/11/17 06:00 Baso # (Auto) 0.01 K/mm3 (0.0-2.0) 10/11/17 06:00 PT 12.6 SECONDS (9.4-12.5) H 10/10/17 02:15 INR 1.10 10/10/17 02:15 APTT 31.3 Seconds (25.1-36.5) 10/10/17 02:15 D-Dimer, Quantitative < 200 mg/L DDU (0-243) 10/10/17 02:15 Sodium 138 mmol/L (132-148) 10/11/17 06:00 Potassium 4.0 mmol/L (3.6-5.0) 10/11/17 06:00 Chloride 100 mmol/L (98-107) 10/11/17 06:00 Carbon Dioxide 23 mmol/L (21-33) 10/11/17 06:00 Anion Gap 19 (10-20) 10/11/17 06:00 BUN 11 mg/dL (7-21) 10/11/17 06:00 Creatinine 0.4 mg/dl (0.7-1.2) L 10/11/17 06:00 Est GFR ( Amer) > 60 10/11/17 06:00 Est GFR (Non-Af Amer) > 60 10/11/17 06:00 POC Glucose (mg/dL) 213 mg/dL (65-110) H 10/11/17 11:42 Random Glucose 250 mg/dL (70-110) H 10/11/17 06:00 Calcium 9.6 mg/dL (8.4-10.5) 10/11/17 06:00 Phosphorus 3.7 mg/dL (2.5-4.5) 10/10/17 07:40 Magnesium 1.6 mg/dL (1.7-2.2) L 10/10/17 07:40 Total Bilirubin 0.9 mg/dL (0.2-1.3) 10/11/17 06:00 AST 295 U/L (14-36) H D 10/11/17 06:00 ALT 285 U/L (7-56) H 10/11/17 06:00 Alkaline Phosphatase 172 U/L (38-126) H 10/11/17 06:00 Lactate Dehydrogenase 547 U/L (333-699) 10/10/17 02:15 Total Creatine Kinase 51 U/L (35-230) 10/10/17 02:15 Troponin I < 0.01 ng/mL 10/10/17 02:15 Total Protein 7.6 g/dL (5.8-8.3) 10/11/17 06:00 Albumin 4.1 g/dL (3.0-4.8) 10/11/17 06:00 Globulin 3.4 gm/dL 10/11/17 06:00 Albumin/Globulin Ratio 1.2 (1.1-1.8) 10/11/17 06:00 Triglycerides 250 mg/dL (35-160) H 10/10/17 07:40 Cholesterol 202 mg/dL (130-200) H 10/10/17 07:40 LDL Cholesterol Direct 123 mg/dL (0-129) 10/10/17 07:40 HDL Cholesterol 35 mg/dL (29-60) 10/10/17 07:40 TSH 3rd Generation 1.61 mIU/mL (0.46-4.68) 10/10/17 07:40 Urine HCG, Qual Negative (NEGATIVE) 10/10/17 06:22 Urine Opiates Screen Negative (NEGATIVE) 10/10/17 13:50 Urine Methadone Screen Negative (NEGATIVE) 10/10/17 13:50 Acetaminophen < 10.0 ug/ml (10.0-20.0) L 10/10/17 07:40 Ur Barbiturates Screen Negative (NEGATIVE) 10/10/17 13:50 Ur Phencyclidine Scrn Negative (NEGATIVE) 10/10/17 13:50 Ur Amphetamines Screen Negative (NEGATIVE) 10/10/17 13:50 U Benzodiazepines Scrn Negative (NEGATIVE) 10/10/17 13:50 U Oth Cocaine Metabols Negative (NEGATIVE) 10/10/17 13:50 U Cannabinoids Screen Negative (NEGATIVE) 10/10/17 13:50 Hepatitis A IgM Ab Negative (NEGATIVE) 10/10/17 07:40 Hep Bs Antigen Negative (NEGATIVE) 10/10/17 07:40 Hep B Core IgM Ab Negative (NEGATIVE) 10/10/17 07:40 Hepatitis C Antibody Negative (NEGATIVE) 10/10/17 07:40 - Hospital Course Hospital Course: Hammad Rodriguez, PGY-1 Discharge Summary for Hospitalist Service Hospital Course This 27 year old woman with history of hyperlipidemia, hypertension, heavy irregular periods, morbid obesity, and DM type 2 presented with complaints of palpitations. Patient reports that she was awoken a week ago with palpitations, and that episode resolved. The morning of admission, patient reported some palpitations after waking up that caused patient discomfort and was brought in to the hospital. Troponin x1 was negative and d-dimer was within normal limits. Chest x-ray did not show any acute findings. EKG showed t-wave changes and sinus tachycardia. Urine toxology screen was negative and TSH was within normal limits. Cardiology (Dr. Anderson) was consulted. Due to her cardiac problems, echocardiogram was performed and showed EF 52.6% and apical hypokinesis. The patients LFTs were elevated so an ultrasound of the abdomen was performed and the imaging showed hepatomegaly with fatty liver infiltration, cholelithiasis and mildly elevated common bile duct dilation. No further workup warranted at this time Cardiology recommended that the patient be switched from Lopressor 50 to atenonol 25 mg daily. The latest EKG showed that the patient is in normal sinus rhythm and she will follow up with her felt puller (Dr. Martin) in [place] for an outpatient stress test per patient's schedule. Patient was hemodynamically stable, medically stable, in full cognitive capacity , and was in full agreement to be discharged. Patient questions were answered fully with patient's mother at bedside and ongoing recommendations were discussed at length to patient's satisfaction. Both patient and mother expressed understanding. Patient was counselled regarding weight loss and diet. Discharge Medications Aspirin, Metformin, valsartan, HCTZ, atenolol Please see Discharge Instructions for more information and please refer to chart for complete record of hospital events. Patient seen, case reviewed, and plan discussed with Dr. Alejo. Hammad Rodriguez, PGY-1 Discharge Exam - Head Exam Head Exam: ATRAUMATIC, NORMAL INSPECTION - Eye Exam Eye Exam: EOMI, Normal appearance Pupil Exam: PERRL - ENT Exam ENT Exam: Mucous Membranes Moist - Neck Exam Neck exam: Normal Inspection - Respiratory Exam Respiratory Exam: Clear to PA & Lateral, UNREMARKABLE. absent: Rales, Rhonchi, Wheezes, Respiratory Distress, Stridor - Cardiovascular Exam Cardiovascular Exam: RRR, +S1, +S2 - GI/Abdominal Exam GI & Abdominal Exam: Normal Bowel Sounds, Soft, Unremarkable - Extremities Exam Extremities exam: normal inspection - Back Exam Back exam: FULL ROM - Neurological Exam Neurological exam: Alert, Oriented x3 - Psychiatric Exam Psychiatric exam: Normal Affect, Normal Mood - Skin Skin Exam: Dry, Intact, Normal Color Discharge Plan - Discharge Medications Prescriptions: Atenolol [Tenormin] 25 mg PO DAILY #30 tab hydroCHLOROthiazide [Microzide] 12.5 mg PO DAILY #30 cap - Follow Up Plan Condition: STABLE Disposition: HOME/ ROUTINE Instructions: Sleep Study, Low Cholesterol, Saturated Fat, and Trans Fat Diet , Nonalcoholic Fatty Liver Disease (DC), Atenolol, Palpitations (DC), Cardioversion (DC) Additional Instructions: Please follow up with your primary care doctor/felt puller within one to two weeks to discuss the issues addressed during your hospitalization. You are also scheduled for an outpatient stress test. Please follow up and complete this. It has been recommended that you complete a sleep study. Contact information has been provided for a Sleep Medicine specialist in [place], Dr. Wan Vasquez. You may contact this physician or one of your choice. Please follow up with your COSMETIC MANAGER as scheduled. You are being started on two new medications as follows 1. Atenolol (A beta shanon for your heart rate) 2. HCTZ (Blood pressure medication) Please stop taking your metoprolol/HCTZ combination pill. Please take all medications as prescribed. It is advised that you adhere to a low fat diet due to your non-alcoholic hepatic steatosis. Should your symptoms worsen or persist, please seek emergency medical attention. Referrals: Binh Martin MD [Primary Care Provider] - Wan Vasquez MD [Medical Doctor] - <Cristina Alejo - Last Filed: 10/11/17 16:05> Provider - Provider Date of Admission: 10/10/17 05:10 Attending physician: Cristina Alejo MD Primary care physician: Binh Martin MD Hospital Course - Lab Results Lab Results: Most Recent Lab Values WBC 7.5 10^3/ul (4.5-11.0) 10/11/17 06:00 RBC 4.27 10^6/uL (3.5-6.1) 10/11/17 06:00 Hgb 13.0 g/dL (12.0-16.0) 10/11/17 06:00 Hct 37.1 % (36.0-48.0) 10/11/17 06:00 MCV 86.9 fl (80.0-105.0) 10/11/17 06:00 MCH 30.4 pg (25.0-35.0) 10/11/17 06:00 MCHC 35.0 g/dl (31.0-37.0) 10/11/17 06:00 RDW 13.0 % (11.5-14.5) 10/11/17 06:00 Plt Count 304 10^3/uL (120.0-450.0) 10/11/17 06:00 MPV 10.0 fl (7.0-11.0) 10/11/17 06:00 Gran % 59.0 % (50.0-68.0) 10/11/17 06:00 Lymph % (Auto) 35.6 % (22.0-35.0) H 10/11/17 06:00 Wolfe % (Auto) 4.1 % (1.0-6.0) 10/11/17 06:00 Eos % (Auto) 1.2 % (1.5-5.0) L 10/11/17 06:00 Baso % (Auto) 0.1 % (0.0-3.0) 10/11/17 06:00 Gran # 4.42 (1.4-6.5) 10/11/17 06:00 Lymph # (Auto) 2.7 (1.2-3.4) 10/11/17 06:00 Wolfe # (Auto) 0.3 (0.1-0.6) 10/11/17 06:00 Eos # (Auto) 0.1 (0.0-0.7) 10/11/17 06:00 Baso # (Auto) 0.01 K/mm3 (0.0-2.0) 10/11/17 06:00 PT 12.6 SECONDS (9.4-12.5) H 10/10/17 02:15 INR 1.10 10/10/17 02:15 APTT 31.3 Seconds (25.1-36.5) 10/10/17 02:15 D-Dimer, Quantitative < 200 mg/L DDU (0-243) 10/10/17 02:15 Sodium 138 mmol/L (132-148) 10/11/17 06:00 Potassium 4.0 mmol/L (3.6-5.0) 10/11/17 06:00 Chloride 100 mmol/L (98-107) 10/11/17 06:00 Carbon Dioxide 23 mmol/L (21-33) 10/11/17 06:00 Anion Gap 19 (10-20) 10/11/17 06:00 BUN 11 mg/dL (7-21) 10/11/17 06:00 Creatinine 0.4 mg/dl (0.7-1.2) L 10/11/17 06:00 Est GFR ( Amer) > 60 10/11/17 06:00 Est GFR (Non-Af Amer) > 60 10/11/17 06:00 POC Glucose (mg/dL) 213 mg/dL (65-110) H 10/11/17 11:42 Random Glucose 250 mg/dL (70-110) H 10/11/17 06:00 Calcium 9.6 mg/dL (8.4-10.5) 10/11/17 06:00 Phosphorus 3.7 mg/dL (2.5-4.5) 10/10/17 07:40 Magnesium 1.6 mg/dL (1.7-2.2) L 10/10/17 07:40 Total Bilirubin 0.9 mg/dL (0.2-1.3) 10/11/17 06:00 AST 295 U/L (14-36) H D 10/11/17 06:00 ALT 285 U/L (7-56) H 10/11/17 06:00 Alkaline Phosphatase 172 U/L (38-126) H 10/11/17 06:00 Lactate Dehydrogenase 547 U/L (333-699) 10/10/17 02:15 Total Creatine Kinase 51 U/L (35-230) 10/10/17 02:15 Troponin I < 0.01 ng/mL 10/10/17 02:15 Total Protein 7.6 g/dL (5.8-8.3) 10/11/17 06:00 Albumin 4.1 g/dL (3.0-4.8) 10/11/17 06:00 Globulin 3.4 gm/dL 10/11/17 06:00 Albumin/Globulin Ratio 1.2 (1.1-1.8) 10/11/17 06:00 Triglycerides 250 mg/dL (35-160) H 10/10/17 07:40 Cholesterol 202 mg/dL (130-200) H 10/10/17 07:40 LDL Cholesterol Direct 123 mg/dL (0-129) 10/10/17 07:40 HDL Cholesterol 35 mg/dL (29-60) 10/10/17 07:40 TSH 3rd Generation 1.61 mIU/mL (0.46-4.68) 10/10/17 07:40 Urine HCG, Qual Negative (NEGATIVE) 10/10/17 06:22 Urine Opiates Screen Negative (NEGATIVE) 10/10/17 13:50 Urine Methadone Screen Negative (NEGATIVE) 10/10/17 13:50 Acetaminophen < 10.0 ug/ml (10.0-20.0) L 10/10/17 07:40 Ur Barbiturates Screen Negative (NEGATIVE) 10/10/17 13:50 Ur Phencyclidine Scrn Negative (NEGATIVE) 10/10/17 13:50 Ur Amphetamines Screen Negative (NEGATIVE) 10/10/17 13:50 U Benzodiazepines Scrn Negative (NEGATIVE) 10/10/17 13:50 U Oth Cocaine Metabols Negative (NEGATIVE) 10/10/17 13:50 U Cannabinoids Screen Negative (NEGATIVE) 10/10/17 13:50 Hepatitis A IgM Ab Negative (NEGATIVE) 10/10/17 07:40 Hep Bs Antigen Negative (NEGATIVE) 10/10/17 07:40 Hep B Core IgM Ab Negative (NEGATIVE) 10/10/17 07:40 Hepatitis C Antibody Negative (NEGATIVE) 10/10/17 07:40 Attending/Attestation - Attestation I have personally seen and examined this patient.: Yes I have fully participated in the care of the patient.: Yes I have reviewed all pertinent clinical information, including history, physical exam and plan: Yes Notes (Text): 10/11/17 15:59 Medical record note made by the resident after discussion with my direction and input after the patient was personally seen and examined by me. I have reviewed the chart and agree that the record accurately reflects by personal performance of the history, physical exam, data review, and medical decision-making, in the course for the patient. I have also personally directed the plan of care. 27 year old woman with history of hyperlipidemia, hypertension,, morbid obesity , and DM type 2 presented with complaints of palpitations, she was monitored in telemetry which was negative for any arrhythmia. 2 D echo showed normal systolic function,Patient was evaluated by cardiology and Metoprolol was switched to Atenolol.She is asymptomatic and is ambulatory. She will be discharged home and will follow up with PCP and cardiology. Patient will also need sleep study as out patient. Management plan was discussed in detail with patient. Education was provided.
--- NOTE | 2017-10-11 16:41 | PN ---
Copied To: Cristina Case MD Attending MD: Cristina Case MD DATE: 10/11/2017 LOCATION: The patient is in room 267, bed 2. REASON FOR CONSULTATION: Palpitation, hypertension, diabetes mellitus, sinus tachycardia. SUBJECTIVE: The patient is feeling much better with regard to palpitation since I put her on atenolol 25 daily. She denies any chest pain, shortness of breath, or palpitation. PHYSICAL EXAMINATION VITAL SIGNS: Blood pressure 119/71, respirations 22, pulse 75, temperature 98.2. HEENT: Head is normocephalic. Eyes: Pupils normal. Conjunctivae normal. Nose and throat normal. NECK: JVP low. Carotids equal. THORAX: AP diameter normal. LUNGS: Clear. CARDIOVASCULAR: S1 and S2. ABDOMEN: Soft. No tenderness. No organomegaly. Bowel sounds are normal. EXTREMITIES: No clubbing. No cyanosis. LABORATORY DATA: WBC 7.5, hemoglobin 13, hematocrit 37.1 and platelet 304. Sodium 138, potassium 4, BUN of 11, creatinine 0.4. Total protein and albumin normal. Random sugar 213. AST 295, ALT 285, alkaline phosphatase 172. Ultrasound of abdomen showed hepatomegaly with diffuse fatty infiltration suggestive of fatty liver. The patient also has gallstones, but the patient is asymptomatic from gallstones. Echocardiogram was done yesterday showed left ventricle size is normal, normal left ventricular wall thickness, LV systolic function is borderline with LV ejection fraction of 53%. DIAGNOSES: Palpitations, sinus tachycardia, hypertension, diabetes, obesity, fatty liver, hypothyroidism, high triglyceride, high cholesterol. PLAN: The patient's Lopressor was discontinued yesterday and atenolol at 25 mg was given with which the patient's heart rate is controlled. The patient is clinically symptomatically much improved. She follows with Dr. Martin in [place] who is a head worker and she had appointment with him to see him and she sees him regularly, so she wants to go back to follow up with him and we will continue present therapy. Cristina Case MD
== END 2017-10-11 14:07 | disposition home or self-care (01) ==
LOC: ED 01:23 → ERH 05:10 → 2RNO 06:47
PROVIDERS: ADMIT Internal Medicine; ATTEND Internal Medicine
DX: R00.0 Tachycardia, unspecified (principal); I10 Essential (primary) hypertension; E11.9 Type 2 diabetes mellitus without complications; E78.00 Pure hypercholesterolemia, unspecified; K76.0 Fatty (change of) liver, not elsewhere classified; E03.9 Hypothyroidism, unspecified; E78.1 Pure hyperglyceridemia; E66.01 Morbid (severe) obesity due to excess calories; Z68.38 Body mass index [BMI] 38.0-38.9, adult
CPT/HCPCS: 36415; 71045; 76700; 80053; 80061; 80074; 80324; 80329; 80345; 80346; 80349; 80353; 80358; 80361; 82550; 82948; 83615; 83735; 83992; 84100; 84443; 84484; 84703; 85025; 85027; 85378; 85610; 85730; 93005; 93306; 99285; C9113; G0378; J1650; J3475

== ENCOUNTER 2018-01-14 12:51 | Emergency (ER) | payer MEDICAID ==
[2018-01-14 12:52] VITALS: BMI 38.5
[2018-01-14 13:04] VITALS: PULSE 86; RESP 18; TEMP 97.7
[2018-01-14] MEDS ORDERED: DiphenhydrAMINE 50 mg/ml Inj IVP STA (13:06)
[2018-01-14] MEDS ORDERED: Sodium Chloride 0.9% 1,000 ML IV STA (13:06)
--- NOTE | 2018-01-14 13:09 | ED PDOC ---
Arrival/HPI - General Chief Complaint: Headache Historian: Patient - History of Present Illness Narrative History of Present Illness (Text): 01/14/18 13:07 27 y/o female, pmh including htn/dm, nkda, c/o generalized headache x 2 days. Pt. stated that the headache is parietal, throbbing sensation, no neck stiffness, no rash, no numbness or tingling, no change in vision, no night sweat, no rash, no palpitation, no other medical or psychological complaints. Past Medical History - Provider Review Nursing Documentation Reviewed: Yes - Past History Past History: No Previous - Infectious Disease Hx of Infectious Diseases: None - Tetanus Immunization Tetanus Immunization: Unknown - Cardiac Hx Cardiac Disorders: Yes Hx Cardiac Arrhythmia: Yes (sinus tachycardia.) Hx Congestive Heart Failure: No Hx Hypertension: Yes Hx Internal Defibrillator: No Hx Mitral Valve Prolapse: No Hx Pacemaker: No Hx Peripheral Edema: No - Pulmonary Hx Respiratory Disorders: No Hx Asthma: No Hx Bronchitis: No Hx Chronic Obstructive Pulmonary Disease (COPD): No Hx Emphysema: No - Neurological Hx Neurological Disorder: No Hx Alzheimer's Disease: No HX Cerebrovascular Accident: No Hx Dementia: No Hx Migraine: No Hx Parkinson's Disease: No Hx Seizures: No Hx Transient Ischemic Attacks (TIA): No - HEENT Hx HEENT Disorder: No Hx Blind: No Hx Cataracts: No Hx Deafness: No Hx Difficulty Chewing: No Hx Epistaxis: No Hx Glaucoma: No Hx Macular Degeneration: No - Renal Hx Renal Disorder: No Hx Renal Failure: No - Endocrine/Metabolic Hx Endocrine Disorders: Yes Hx Diabetes Mellitus Type 2: Yes - Hematological/Oncological Hx Blood Disorders: Yes Hx Anemia: Yes - Integumentary Hx Dermatological Disorder: No Hx Basal Cell Carcinoma: No Hx Eczema: No Hx Melanoma: No Hx Psoriasis: No Hx Squamous Cell Carcinoma: No - Musculoskeletal/Rheumatological Hx Musculoskeletal Disorders: No Hx Arthritis: No - Gastrointestinal Hx Gastrointestinal Disorders: No Hx Crohn's Disease: No Hx Diverticulitis: No Hx Gastroesophageal Reflux: No Hx Liver Failure: No - Genitourinary/Gynecological Hx Genitourinary Disorders: Yes (vaginal bleeding) Hx Sexually Transmitted Diseases: No - Psychiatric Hx Psychophysiologic Disorder: No Hx Anxiety: No Hx Bipolar Disorder: No Hx Depression: No Hx Emotional Abuse: No Hx Hallucinations: No Hx Panic Disorder: No Hx Post Traumatic Stress Disorder: No Hx Psychosis: No Hx Physical Abuse: No Hx Schizophrenia: No Hx Sexual Abuse: No Hx Substance Use: No - Past Surgical History Past Surgical History: No Previous - Surgical History Hx Amputation: No Hx Appendectomy: No Hx Cardiac Catheterization: No Hx Cholecystectomy: No Hx Coronary Stent: No Hx Gastric Bypass Surgery: No Hx Hysterectomy: No Hx Joint Replacement: No Hx Kidney Transplant: No Hx Liver Transplant: No Hx Mastectomy: No Hx Open Heart Surgery: No Hx Orthopedic Surgery: No Hx Splenectomy: No Hx Valve Replacement: No - Anesthesia Hx Anesthesia Reactions: No Hx Malignant Hyperthermia: No - Suicidal Assessment Feels Threatened In Home Enviroment: No Family/Social History - Physician Review Nursing Documentation Reviewed: Yes Family/Social History: Unknown Family HX Smoking Status: Never Smoked Hx Alcohol Use: No Hx Substance Use: No Hx Substance Use Treatment: No Allergies/Home Meds Allergies/Adverse Reactions: Allergies No Known Allergies Allergy (Verified 01/14/18 13:04) Home Medications: Home Meds Medication Instructions Recorded Confirmed metFORMIN [glucOPHAGE] 1,000 mg PO BID 05/02/16 01/14/18 GlipiZIDE [Glucotrol] 10 mg PO DAILY 01/14/18 01/14/18 Liraglutide [Victoza 3-Doc] 1.8 mg SC DAILY 01/14/18 01/14/18 Losartan [Cozaar] 100 mg PO DAILY 01/14/18 01/14/18 Losartan/Hydrochlorothiazide 1 tab PO BID 01/14/18 01/14/18 [Losartan-Hctz 50-12.5 mg Tab] Review of Systems - Review of Systems Constitutional: absent: Fatigue, Fevers Eyes: absent: Vision Changes ENT: absent: Hearing Changes, Rhinorrhea Respiratory: absent: SOB, Cough Cardiovascular: absent: Chest Pain Gastrointestinal: absent: Abdominal Pain, Diarrhea, Nausea, Vomiting Skin: absent: Rash, Pruritis, Skin Lesions Neurological: Headache. absent: Dizziness Hemo/Lymphatic: absent: Adenopathy Psychiatric: absent: Anxiety, Depression, Suicidal Ideation Physical Exam Vital Signs Reviewed: Yes Vital Signs Temp Pulse Resp BP Pulse Ox 01/14/18 13:02 97.7 F 86 18 95/67 L 97 Temperature: Afebrile Blood Pressure: Hypotensive Pulse: Regular Respiratory Rate: Normal Appearance: Positive for: Well-Appearing, Non-Toxic, Comfortable Pain Distress: Severe Mental Status: Positive for: Alert and Oriented X 3 - Systems Exam Head: Present: Atraumatic, Normocephalic, Other (no temporal artery tenderness. ). No: Tenderness, Contusion, Swelling, Ecchymosis, Abrasion, Laceration Pupils: Present: PERRL Extroacular Muscles: Present: EOMI Conjunctiva: Present: Normal Ears: Present: NORMAL TM, Normal Canal. No: Erythema Mouth: Present: Moist Mucous Membranes Pharnyx: No: ERYTHEMA, EXUDATE, TONSILS ENLARGED Nose (External): Present: Atraumatic. No: Abrasion, Contusion, Laceration Nose (Internal): Present: Normal Inspection, No Active Bleeding. No: Rhinorrhea, Septal Hematoma, Epistaxis Neck: Present: Normal Range of Motion, Trachea Midline. No: Meningeal Signs, MIDLINE TENDERNESS, Paraspinal Tenderness, Lymphadenopathy Respiratory/Chest: Present: Clear to Auscultation, Good Air Exchange. No: Respiratory Distress, Accessory Muscle Use Cardiovascular: Present: Regular Rate and Rhythm, Normal S1, S2. No: Murmurs Abdomen: No: Tenderness, Distention, Peritoneal Signs Back: Present: Normal Inspection Upper Extremity: Present: Normal Inspection. No: Cyanosis, Edema Lower Extremity: Present: Normal Inspection. No: Edema Neurological: Present: GCS=15, CN II-XII Intact, Speech Normal, Motor Func Grossly Intact, Normal Cerebellar Funct, Gait Normal, Memory Normal, Other (normal finger to nose test, normal heel to dennis test. ) Skin: Present: Warm, Dry, Normal Color. No: Rashes Psychiatric: Present: Alert, Oriented x 3, Normal Insight, Normal Concentration Medical Decision Making ED Course and Treatment: 01/14/18 13:08 -Labs -CT head -IVF/reglan/benadryl -Observe and reassess 01/14/18 14:48 -Urine hcg is negative -Labs show no acute findings except K+ 3.5 (potassium chloride 20meq po), AST 76 from 295, ALFT 106 from 285, Alkphos 162 from 172 -CT head show No acute intracranial abnormality. -UA show +yeast and +bacterial UTI, diflucant ordered. -Pt. feels well, asymptomatic, all labs and radiology results discussed, will discharge home. -Repeated v/s -Discharge home with macrobid, motrin, bed rest, follow up with your own pmd and GI/neurologist within 2 days, avoid tylenol as your liver enzyme is mildly elevated, return to the ER for any new or worsening signs or symptoms. - RAD Interpretation Radiology Orders: 01/14/18 13:06 HEAD W/O CONTRAST [CT] Stat Date of service: 01/14/2018 PROCEDURE: CT HEAD WITHOUT CONTRAST. HISTORY: Headache x 3 days. COMPARISON: 04/15/2014. TECHNIQUE: Axial computed tomography images were obtained through the head/brain without intravenous contrast. Radiation dose: Total exam DLP = 925.02 mGy-cm. This CT exam was performed using one or more of the following dose reduction techniques: Automated exposure control, adjustment of the mA and/or kV according to patient size, and/or use of iterative reconstruction technique. FINDINGS: HEMORRHAGE: No intracranial hemorrhage. BRAIN: Read-white matter differentiation is preserved. There is no mass, mass effect or abnormal extra-axial fluid collection. There is no territorial infarction. The midline sagittal structures are normal. VENTRICLES: The ventricles are normal in size, shape and configuration. CALVARIUM: There is no calvarial fracture or extracranial soft tissue swelling. PARANASAL SINUSES: Predominantly clear. MASTOID AIR CELLS: Predominantly clear. OTHER FINDINGS: Mild left frontal scalp soft tissue thickening. IMPRESSION: No acute intracranial abnormality. Supervisor Beam Department: Radiologist - Medication Orders Current Medication Orders: Diphenhydramine HCl (Benadryl) 25 mg IVP STAT STA Stop: 01/14/18 13:07 - PA / RADIO ARTIST / Resident Statement MD/DO has reviewed & agrees with the documentation as recorded. Disposition/Present on Arrival - Present on Arrival Any Indicators Present on Arrival: No History of DVT/PE: No History of Uncontrolled Diabetes: Yes Urinary Catheter: No History of Decub. Ulcer: No History Surgical Site Infection Following: None - Disposition Have Diagnosis and Disposition been Completed?: Yes Diagnosis: Headache, UTI (urinary tract infection) Disposition: HOME/ ROUTINE Disposition Time: 14:54 Patient Plan: Discharge Condition: IMPROVED Additional Instructions: -Discharge home with macrobid, motrin, bed rest, follow up with your own pmd and GI/neurologist within 2 days, avoid tylenol as your liver enzyme is mildly elevated, return to the ER for any new or worsening signs or symptoms. Prescriptions: Ibuprofen [Motrin Tab] 600 mg PO QID PRN #30 tab PRN Reason: Other Nitrofurantoin Macrocrystals [Macrobid] 100 mg PO BID #14 cap Referrals: [facility] [place] [Outside] - Follow up with primary Jayden Beltrán MD [Staff Provider] - Follow up with primary Eric Adler DO [Staff Provider] - Follow up with primary Forms: [employer] (Mongolian), WORK NOTE
[2018-01-14 13:58] LABS: BASO # 0.02 K/mm3 (0.0-2.0); BASO % 0.3 % (0.0-3.0); EOS # 0.1 (0.0-0.7); EOS % 1.2 % (1.5-5.0); GRAN # 3.84 (1.4-6.5); GRAN % 52.7 % (50.0-68.0); HEMOGLOBIN 12.5 g/dL (12.0-16.0); LYMPH # 2.8 (1.2-3.4); LYMPH % 38.8 % (22.0-35.0); MEAN CELL VOLUME 88.8 fl (80.0-105.0); MEAN CORPUSCULAR HEMOGLOBIN 30.5 pg (25.0-35.0); MEAN CORPUSCULAR HGB CONC 34.3 g/dl (31.0-37.0); MEAN PLATELET VOLUME 9.4 fl (7.0-11.0); MONO # 0.5 (0.1-0.6); RBC 4.1 10^6/uL (3.5-6.1); RED CELL DISTRIBUTION WIDTH 13.1 % (11.5-14.5); WHITE BLOOD COUNT 7.3 10^3/uL (4.5-11.0)
[2018-01-14 14:05] LABS: URINE APPEARANCE CLEAR (CLEAR); URINE BILIRUBIN SMALL (NEGATIVE); URINE BLOOD NEGATIVE (NEGATIVE); URINE COLOR DARK YELLOW (YELLOW); URINE GLUCOSE (UA) NEGATIVE (NEGATIVE); URINE LEUKOCYTE ESTERASE TRACE Leu/uL (NEGATIVE); URINE PROTEIN 30 mg/dL (<30 mg/dL)
[2018-01-14 14:08] LABS: URINE BACTERIA MANY (NEG)
[2018-01-14 14:18] LABS: ALB/GLOB RATIO 1.1 (1.1-1.8); ALBUMIN 4.4 g/dL (3.0-4.8); ALT/SGPT 106 U/L (7-56); AST/SGOT 76 U/L (14-36); BLOOD UREA NITROGEN 12 mg/dL (7-21); CALCIUM 9.2 mg/dL (8.4-10.5); GFR NON-AFRICAN AMERICAN > 60
--- NOTE | 2018-01-14 14:39 | CT ---
Date of service: 01/14/2018 PROCEDURE: CT HEAD WITHOUT CONTRAST. HISTORY: Headache x 3 days. COMPARISON: 04/15/2014. TECHNIQUE: Axial computed tomography images were obtained through the head/brain without intravenous contrast. Radiation dose: Total exam DLP = 925.02 mGy-cm. This CT exam was performed using one or more of the following dose reduction techniques: Automated exposure control, adjustment of the mA and/or kV according to patient size, and/or use of iterative reconstruction technique. FINDINGS: HEMORRHAGE: No intracranial hemorrhage. BRAIN: Read-white matter differentiation is preserved. There is no mass, mass effect or abnormal extra-axial fluid collection. There is no territorial infarction. The midline sagittal structures are normal. VENTRICLES: The ventricles are normal in size, shape and configuration. CALVARIUM: There is no calvarial fracture or extracranial soft tissue swelling. PARANASAL SINUSES: Predominantly clear. MASTOID AIR CELLS: Predominantly clear. OTHER FINDINGS: Mild left frontal scalp soft tissue thickening. IMPRESSION: No acute intracranial abnormality.
[2018-01-14] MEDS ORDERED: Potassium Chloride 20 mEq ER Tab PO STA (14:44)
[2018-01-14 15:13] VITALS: BP 109/76; O2SAT 99
== END 2018-01-14 16:07 | disposition home or self-care (01) ==
LOC: ED 12:51
DX: R51 Headache (principal); N39.0 Urinary tract infection, site not specified; I10 Essential (primary) hypertension; E11.9 Type 2 diabetes mellitus without complications
CPT/HCPCS: 70450; 80053; 81001; 83735; 85025; 87086; 96361; 96374; 96375; 99284; J1200; J2765; J7030

== ENCOUNTER 2018-01-27 23:20 | Emergency (ER) | payer MEDICAID ==
[2018-01-27 23:20] VITALS: BMI 38.5
[2018-01-27 23:33] VITALS: TEMP 97.8; O2SAT 98
--- NOTE | 2018-01-28 01:47 | ED PDOC ---
Arrival/HPI - General Chief Complaint: Cough, Cold, Congestion Time Seen by Provider: 01/27/18 23:32 Historian: Patient - History of Present Illness Narrative History of Present Illness (Text): 01/28/18 01:47 28yr old female presents today with Uri symptoms x 1 week. pt was seen by PMD when symptoms started and told it was viral. pt states she then returned to the doctor a few days ago and was treated for bronchitis. Patient states she is still not feeling better. Patient is complaining of sore throat, postnasal drip. She is complaining of cough with occasional yellow phlegm. She denies fevers or chills. Denies headaches dizziness or weakness. Patient states when she lays flat she feels as if mucus is dripping in the back of the throat.patient denies chest pain or shortness of breath. Denies sick contacts. No other complaints Time/Duration: > week Past Medical History - Provider Review Nursing Documentation Reviewed: Yes - Travel History Have you recently traveled outside [place] w/in the past 3 mons?: No - Past History Past History: No Previous - Infectious Disease Hx of Infectious Diseases: None - Tetanus Immunization Tetanus Immunization: Unknown - Cardiac Hx Cardiac Disorders: Yes Hx Cardiac Arrhythmia: Yes (sinus tachycardia.) Hx Congestive Heart Failure: No Hx Hypertension: Yes Hx Internal Defibrillator: No Hx Mitral Valve Prolapse: No Hx Pacemaker: No Hx Peripheral Edema: No - Pulmonary Hx Respiratory Disorders: No Hx Asthma: No Hx Bronchitis: No Hx Chronic Obstructive Pulmonary Disease (COPD): No Hx Emphysema: No - Neurological Hx Neurological Disorder: No Hx Alzheimer's Disease: No HX Cerebrovascular Accident: No Hx Dementia: No Hx Migraine: No Hx Parkinson's Disease: No Hx Seizures: No Hx Transient Ischemic Attacks (TIA): No - HEENT Hx HEENT Disorder: No Hx Blind: No Hx Cataracts: No Hx Deafness: No Hx Difficulty Chewing: No Hx Epistaxis: No Hx Glaucoma: No Hx Macular Degeneration: No - Renal Hx Renal Disorder: No Hx Renal Failure: No - Endocrine/Metabolic Hx Endocrine Disorders: Yes Hx Diabetes Mellitus Type 2: Yes - Hematological/Oncological Hx Blood Disorders: Yes Hx Anemia: Yes - Integumentary Hx Dermatological Disorder: No Hx Basal Cell Carcinoma: No Hx Eczema: No Hx Melanoma: No Hx Psoriasis: No Hx Squamous Cell Carcinoma: No - Musculoskeletal/Rheumatological Hx Musculoskeletal Disorders: No Hx Arthritis: No - Gastrointestinal Hx Gastrointestinal Disorders: No Hx Crohn's Disease: No Hx Diverticulitis: No Hx Gastroesophageal Reflux: No Hx Liver Failure: No - Genitourinary/Gynecological Hx Genitourinary Disorders: Yes (vaginal bleeding) Hx Sexually Transmitted Diseases: No - Psychiatric Hx Psychophysiologic Disorder: No Hx Anxiety: No Hx Bipolar Disorder: No Hx Depression: No Hx Emotional Abuse: No Hx Hallucinations: No Hx Panic Disorder: No Hx Post Traumatic Stress Disorder: No Hx Psychosis: No Hx Physical Abuse: No Hx Schizophrenia: No Hx Sexual Abuse: No Hx Substance Use: No - Past Surgical History Past Surgical History: No Previous - Surgical History Hx Amputation: No Hx Appendectomy: No Hx Cardiac Catheterization: No Hx Cholecystectomy: No Hx Coronary Stent: No Hx Gastric Bypass Surgery: No Hx Hysterectomy: No Hx Joint Replacement: No Hx Kidney Transplant: No Hx Liver Transplant: No Hx Mastectomy: No Hx Open Heart Surgery: No Hx Orthopedic Surgery: No Hx Splenectomy: No Hx Valve Replacement: No - Anesthesia Hx Anesthesia Reactions: No Hx Malignant Hyperthermia: No - Suicidal Assessment Feels Threatened In Home Enviroment: No Family/Social History - Physician Review Nursing Documentation Reviewed: Yes Family/Social History: Unknown Family HX Smoking Status: Never Smoked Hx Alcohol Use: No Hx Substance Use: No Hx Substance Use Treatment: No Allergies/Home Meds Allergies/Adverse Reactions: Allergies No Known Allergies Allergy (Verified 01/27/18 23:31) Home Medications: Home Meds Medication Instructions Recorded Confirmed metFORMIN [glucOPHAGE] 1,000 mg PO BID 05/02/16 01/27/18 GlipiZIDE [Glucotrol] 10 mg PO DAILY 01/14/18 01/27/18 Liraglutide [Victoza 3-Doc] 1.8 mg SC DAILY 01/14/18 01/27/18 Metoprolol Villasenor/Hydrochlorothiaz 1 tab PO BID 01/27/18 01/27/18 [Metoprolol ER-Hctz 50-12.5 mg] Review of Systems - Review of Systems Constitutional: absent: Fatigue, Fevers ENT: Sore Throat, Sinus Congestion Respiratory: Cough. absent: SOB Cardiovascular: absent: Chest Pain Gastrointestinal: absent: Abdominal Pain, Nausea, Vomiting Genitourinary Female: absent: Dysuria Musculoskeletal: absent: Arthralgias, Back Pain Skin: absent: Rash, Pruritis Neurological: absent: Headache, Dizziness Psychiatric: absent: Anxiety, Depression Physical Exam Vital Signs Reviewed: Yes Vital Signs Temp Pulse Resp BP Pulse Ox 01/27/18 23:32 97.8 F 102 H 18 121/83 98 Temperature: Afebrile Blood Pressure: Normal Pulse: Tachycardic Respiratory Rate: Normal Appearance: Positive for: Well-Appearing, Non-Toxic, Comfortable Pain Distress: None Mental Status: Positive for: Alert and Oriented X 3 - Systems Exam Head: Present: Atraumatic Pupils: Present: PERRL Extroacular Muscles: Present: EOMI Conjunctiva: Present: Normal Ears: Present: Normal, NORMAL TM Mouth: Present: Moist Mucous Membranes, Normal Lips, Normal Tounge. No: Drooling, Trismus Pharnyx: Present: ERYTHEMA, Other (+ post nasal drip noted). No: EXUDATE, TO NSILS ENLARGED, Peritonsilar Swelling, Uvular Deviation, Muffled/Hoarse Voice, Strider, Soft Palate/Uvular Edema Nose (Internal): Present: Normal Inspection Neck: Present: Normal Range of Motion Respiratory/Chest: Present: Clear to Auscultation, Good Air Exchange. No: Respiratory Distress, Accessory Muscle Use, Wheezes, Retracting, Rhonchi, Tachypneic Cardiovascular: Present: Regular Rate and Rhythm, Normal S1, S2. No: Murmurs Abdomen: No: Tenderness, Rebound, Guarding Back: Present: Normal Inspection Upper Extremity: Present: Normal ROM Lower Extremity: Present: Normal ROM Neurological: Present: GCS=15, Speech Normal Skin: Present: Warm, Dry, Normal Color. No: Rashes Psychiatric: Present: Alert, Oriented x 3 Medical Decision Making ED Course and Treatment: Patient is nontoxic well-appearing in no distress. Vital signs are stable. chest x-ray shows no infiltrate or effusion no cardiomegaly Pepcid, Claritin, Zithromax po discussed results in depth with patient. I advised follow up with primary care physician within the next 2 days. I advised increase fluids and return if symptoms worsen persist or if new symptoms develop. patient is requesting refill of albuterol for her nebulizer. Patient verbalizes understanding of discharge instructions and need for i mmediate followup. all aspects of this case were discussed the attending of record. IMPRESSION; cough, nasal congestion Motrin one tablet every 6 hours as needed for pain/fever reduction Zithromax one tablet once daily x4 days FLonase; 2 sprays each nostril once daily. albuterol nebulizer 3 times daily as needed for cough Claritin one tablet daily Increase fluids Followup with primary care physician the next 2 days Return if symptoms worsen persist or if new symptoms develop - RAD Interpretation Radiology Orders: 01/28/18 00:03 CHEST TWO VIEWS (PA/LAT) [RAD] Stat - Medication Orders Current Medication Orders: Azithromycin (Zithromax) 500 mg PO STAT STA; Protocol Stop: 01/28/18 01:34 Famotidine (Pepcid) 20 mg PO STAT STA Stop: 01/28/18 01:34 Disposition/Present on Arrival - Present on Arrival Any Indicators Present on Arrival: Yes History of DVT/PE: No History of Uncontrolled Diabetes: Yes Urinary Catheter: No History of Decub. Ulcer: No History Surgical Site Infection Following: None - Disposition Have Diagnosis and Disposition been Completed?: Yes Diagnosis: Cough, Nasal congestion Disposition: HOME/ ROUTINE Disposition Time: 01:20 Patient Plan: Discharge Condition: GOOD Discharge Instructions (ExitCare): Cough, Adult (DC), Cough, Runny Nose, and the Common Cold Additional Instructions: Motrin one tablet every 6 hours as needed for pain/fever reduction Zithromax one tablet once daily x4 days FLonase; 2 sprays each nostril once daily. albuterol nebulizer 3 times daily as needed for cough Claritin one tablet daily Increase fluids Followup with primary care physician the next 2 days Return if symptoms worsen persist or if new symptoms develop Prescriptions: Albuterol 0.083% [Albuterol 0.083% Inhal Sara (2.5 mg/3 ml) UD] 1 vial IH TID PRN #1 packet PRN Reason: Cough Azithromycin [Zithromax] 250 mg PO DAILY #4 tab Fluticasone Nasal [Flonase] 2 spr NS DAILY #1 spr Ibuprofen [Motrin] 600 mg PO Q6H PRN #20 tab PRN Reason: pain/fever reduction Loratadine [Claritin] 10 mg PO DAILY #30 tab Referrals: Binh Martin MD [Primary Care Provider] - Follow up with primary Forms: [employer] (C[place])
[2018-01-28 01:59] VITALS: BP 113/69; PULSE 89; RESP 17
--- NOTE | 2018-01-28 09:40 | RAD ---
HISTORY: cough x 1 week COMPARISON: Chest x-ray performed 10/10/17 TECHNIQUE: Chest PA and lateral FINDINGS: Examination limited by habitus and hypoinflation. LUNGS: Medial right lower lobe atelectasis or infiltrate. Please note that chest x-ray has limited sensitivity for the detection of pulmonary masses. PLEURA: No significant pleural effusion identified. No definite pneumothorax . CARDIOVASCULAR: Heart size appears within normal limits. No atherosclerotic calcification present. OSSEOUS STRUCTURES: No acute osseous abnormality identified. VISUALIZED UPPER ABDOMEN: Unremarkable. OTHER FINDINGS: Streak on frontal view, a round radiopaque density projects over the left lower neck presumably external to the patient. IMPRESSION: Mild medial right lower lobe atelectasis or infiltrate. Correlate clinically. Hypoinflation.
== END 2018-01-28 01:58 | disposition home or self-care (01) ==
LOC: ED 23:20
DX: R05 Cough (principal); R09.81 Nasal congestion; I10 Essential (primary) hypertension

== ENCOUNTER 2018-06-20 01:54 | Emergency (ER) | payer MEDICAID ==
[2018-06-20 02:05] VITALS: BMI 41.5
[2018-06-20 02:10] VITALS: TEMP 98.3
[2018-06-20] MEDS ORDERED: Sodium Chloride 0.9% 1,000 ML IV SCH (02:15)
--- NOTE | 2018-06-20 02:23 | ED PDOC ---
Arrival/HPI - General Chief Complaint: Palpitations Time Seen by Provider: 06/20/18 01:55 Historian: Patient - History of Present Illness Narrative History of Present Illness (Text): 06/20/18 02:14 Kathi Kent is a 28 y/o female whose past medical history includes hypertension, diabetes mellitus type II, and anemia, who presents to the emergency department complaining of dizziness, and "shakiness". Patient states having diabetes but not checking her blood glucose level. Patient notes feeling nauseous prior to arrival, but resolving after eating a piece of candy. Patient states having an elevated heart rate and feeling like fainting. Patient states occasionally feeling anxious. Patient denies any fever, chills, vomiting, diarrhea, shortness of breath, chest pain, back pain, neck pain, abdominal pain, and any other complaint. Time/Duration: 1 hour Symptom Onset: Gradual Activities at Onset: Light Context: Home Past Medical History - Provider Review Nursing Documentation Reviewed: Yes - Past History Past History: No Previous - Infectious Disease Hx of Infectious Diseases: None - Tetanus Immunization Tetanus Immunization: Unknown - Cardiac Hx Cardiac Disorders: Yes Hx Cardiac Arrhythmia: Yes (sinus tachycardia.) Hx Congestive Heart Failure: No Hx Hypertension: Yes Hx Internal Defibrillator: No Hx Mitral Valve Prolapse: No Hx Pacemaker: No Hx Peripheral Edema: No - Pulmonary Hx Respiratory Disorders: No Hx Asthma: No Hx Bronchitis: No Hx Chronic Obstructive Pulmonary Disease (COPD): No Hx Emphysema: No - Neurological Hx Neurological Disorder: No Hx Alzheimer's Disease: No HX Cerebrovascular Accident: No Hx Dementia: No Hx Migraine: No Hx Parkinson's Disease: No Hx Seizures: No Hx Transient Ischemic Attacks (TIA): No - HEENT Hx HEENT Disorder: No Hx Blind: No Hx Cataracts: No Hx Deafness: No Hx Difficulty Chewing: No Hx Epistaxis: No Hx Glaucoma: No Hx Macular Degeneration: No - Renal Hx Renal Disorder: No Hx Renal Failure: No - Endocrine/Metabolic Hx Endocrine Disorders: Yes Hx Diabetes Mellitus Type 2: Yes - Hematological/Oncological Hx Blood Disorders: Yes Hx Anemia: Yes - Integumentary Hx Dermatological Disorder: No Hx Basal Cell Carcinoma: No Hx Eczema: No Hx Melanoma: No Hx Psoriasis: No Hx Squamous Cell Carcinoma: No - Musculoskeletal/Rheumatological Hx Musculoskeletal Disorders: No Hx Arthritis: No - Gastrointestinal Hx Gastrointestinal Disorders: No Hx Crohn's Disease: No Hx Diverticulitis: No Hx Gastroesophageal Reflux: No Hx Liver Failure: No - Genitourinary/Gynecological Hx Genitourinary Disorders: Yes (vaginal bleeding) Hx Sexually Transmitted Diseases: No - Psychiatric Hx Psychophysiologic Disorder: No Hx Anxiety: No Hx Bipolar Disorder: No Hx Depression: No Hx Emotional Abuse: No Hx Hallucinations: No Hx Panic Disorder: No Hx Post Traumatic Stress Disorder: No Hx Psychosis: No Hx Physical Abuse: No Hx Schizophrenia: No Hx Sexual Abuse: No Hx Substance Use: No - Past Surgical History Past Surgical History: No Previous - Surgical History Hx Amputation: No Hx Appendectomy: No Hx Cardiac Catheterization: No Hx Cholecystectomy: No Hx Coronary Stent: No Hx Gastric Bypass Surgery: No Hx Hysterectomy: No Hx Joint Replacement: No Hx Kidney Transplant: No Hx Liver Transplant: No Hx Mastectomy: No Hx Open Heart Surgery: No Hx Orthopedic Surgery: No Hx Splenectomy: No Hx Valve Replacement: No - Anesthesia Hx Anesthesia Reactions: No Hx Malignant Hyperthermia: No - Suicidal Assessment Feels Threatened In Home Enviroment: No Family/Social History - Physician Review Nursing Documentation Reviewed: Yes Family/Social History: Unknown Family HX Smoking Status: Never Smoked Hx Alcohol Use: No Hx Substance Use: No Hx Substance Use Treatment: No Allergies/Home Meds Allergies/Adverse Reactions: Allergies No Known Allergies Allergy (Verified 01/27/18 23:31) Home Medications: Home Meds Medication Instructions Recorded Confirmed metFORMIN [glucOPHAGE] 1,000 mg PO BID 05/02/16 06/20/18 GlipiZIDE [Glucotrol] 10 mg PO DAILY 01/14/18 06/20/18 Metoprolol Villasenor/Hydrochlorothiaz 1 tab PO BID 01/27/18 06/20/18 [Metoprolol ER-Hctz 50-12.5 mg] Metoprolol Tartrate [Lopressor] 50 mg PO QID PRN MDD 4 06/20/18 06/20/18 Review of Systems - Physician Review All systems were reviewed & negative as marked: Yes - Review of Systems Constitutional: absent: Fatigue, Fevers Respiratory: absent: SOB, Cough, Wheezing Cardiovascular: absent: Chest Pain Gastrointestinal: absent: Abdominal Pain, Diarrhea, Nausea, Vomiting Musculoskeletal: absent: Back Pain, Neck Pain Skin: absent: Rash Neurological: Dizziness (dizziness with "shakiness". ). absent: Headache Psychiatric: Anxiety. absent: Depression Physical Exam Vital Signs Temp Pulse Resp BP Pulse Ox 06/20/18 02:07 98.3 F 124 H 21 127/72 100 Temperature: Afebrile Blood Pressure: Normal Pulse: Tachycardic Respiratory Rate: Normal Appearance: Positive for: Well-Appearing, Non-Toxic, Comfortable Pain Distress: None Mental Status: Positive for: Alert and Oriented X 3 - Systems Exam Head: Present: Atraumatic, Normocephalic Pupils: Present: PERRL. No: Sluggish, Non-Reactive Extroacular Muscles: Present: EOMI Conjunctiva: Present: Normal Mouth: Present: Moist Mucous Membranes Neck: Present: Normal Range of Motion. No: Meningeal Signs, MIDLINE TENDERNESS, JVD Respiratory/Chest: Present: Clear to Auscultation, Good Air Exchange. No: Respiratory Distress, Accessory Muscle Use, Rales, Rhonchi Cardiovascular: Present: Normal S1, S2, Tachycardic. No: Murmurs Abdomen: No: Tenderness, Distention, Peritoneal Signs Back: Present: Normal Inspection. No: Midline Tenderness Upper Extremity: Present: Normal Inspection, Normal ROM. No: Cyanosis, Edema, Tenderness, Swelling Lower Extremity: Present: Normal Inspection, Normal ROM. No: Edema, Tenderness, Swelling Neurological: Present: GCS=15, Speech Normal Skin: Present: Warm, Dry, Normal Color. No: Rashes Psychiatric: Present: Alert, Oriented x 3, Normal Insight, Normal Concentration Medical Decision Making ED Course and Treatment: 06/20/18 02:29 Impression: 28 y/o female who presents to emergency department complaining of dizziness and "shakiness". Plan: -- Labs -- EKG -- IV fluids -- Reassess and disposition Prior Visits: Notes and results from previous visits were reviewed. Progress Notes: - Lab Interpretations Lab Results: 06/20/18 03:01 06/20/18 03:01 Lab Results 06/20/18 04:14: Urine Color Yellow, Urine Appearance Clear, Urine pH 7.5, Ur Specific [place] 1.015, Urine Protein Trace H, Urine Glucose (UA) Negative, Urine Ketones Negative, Urine Blood Moderate H, Urine Nitrate Negative, Urine Bilirubin Negative, Urine Urobilinogen 0.2, Ur Leukocyte Esterase Negative, Urine RBC 15 - 20 H, Urine WBC 0 - 2, Ur Epithelial Cells 4 - 5, Urine Bacteria None 06/20/18 03:01: Beta HCG, Quant < 2.39 06/20/18 03:01: Sodium 137, Potassium Pending, Chloride 99, Carbon Dioxide 27, Anion Gap 14, BUN 13, Creatinine 0.4 L, Est GFR ( Amer) > 60, Est GFR (Non-Af Amer) > 60, Random Glucose 153 H, Calcium 9.4, Total Bilirubin 0.5, AST 49 H D, ALT 66 H, Alkaline Phosphatase 134 H, Total Protein 8.0, Albumin 4.3, Globulin 3.6, Albumin/Globulin Ratio 1.2 06/20/18 03:01: WBC 10.7 D, RBC 4.25, Hgb 12.3, Hct 37.1, MCV 87.3, MCH 28.9, MCHC 33.2, RDW 13.8, Plt Count 360, MPV 10.0, Neut % (Auto) 72.8 H, Lymph % (Auto) 22.4, [place] % (Auto) 3.9, Eos % (Auto) 0.7 L, Baso % (Auto) 0.2, Lymph # (Auto) 2.4, [place] # (Auto) 0.4, Eos # (Auto) 0.1, Baso # (Auto) 0.02, Absolute Neuts (auto) 7.81 H 06/20/18 02:02: POC Glucose (mg/dL) 138 H - EKG Interpretation EKG Interpretation (Text): 06/20/18 02:16 EKG reviewed, shows: sinus tachycardia at [address] elevations. Prolonged Q T interval. Interpreted by ED Physician: Yes Type: 12 lead EKG Disposition/Present on Arrival - Present on Arrival Any Indicators Present on Arrival: Yes History of DVT/PE: No History of Uncontrolled Diabetes: Yes Urinary Catheter: No History of Decub. Ulcer: No History Surgical Site Infection Following: None - Disposition Have Diagnosis and Disposition been Completed?: Yes Diagnosis: Anxiety, Tachycardia Disposition: HOME/ ROUTINE Disposition Time: 05:24 Patient Plan: Discharge Condition: STABLE Discharge Instructions (ExitCare): Tachycardia (DC), Anxiety, Adult (DC) Print Language: UKRAINIAN Additional Instructions: All medical record entries made by the Scribe were at my direction and personally dictated by me. I have reviewed the chart and agree that the record accurately reflects my personal performance of the history, physical exam, medical decision making, and the department course for this patient. I have also personally directed, reviewed, and agree with the discharge instructions and disposition. Please follow up with the goldbeater Please check your sugars daily Referrals: Binh Martin MD [Primary Care Provider] - Follow up with primary Forms: [employer] (Irish)
[2018-06-20 03:59] LABS: ALB/GLOB RATIO 1.2 (1.1-1.8); ALBUMIN 4.3 g/dL (3.0-4.8); ALT/SGPT 66 U/L (7-56); AST/SGOT 49 U/L (14-36); BLOOD UREA NITROGEN 13 mg/dL (7-21); CALCIUM 9.4 mg/dL (8.4-10.5); GFR NON-AFRICAN AMERICAN > 60
[2018-06-20 04:06] LABS: BASO # 0.02 K/mm3 (0.0-2.0); BASO % 0.2 % (0.0-3.0); EOS # 0.1 (0.0-0.7); EOS % 0.7 % (1.5-5.0); HEMOGLOBIN 12.3 g/dL (12.0-16.0); LYMPH # 2.4 (1.2-3.4); LYMPH % 22.4 % (22.0-35.0); MEAN CELL VOLUME 87.3 fl (80.0-105.0); MEAN CORPUSCULAR HEMOGLOBIN 28.9 pg (25.0-35.0); MEAN CORPUSCULAR HGB CONC 33.2 g/dl (31.0-37.0); MONO # 0.4 (0.1-0.6); MONO % 3.9 % (1.0-6.0); RBC 4.25 10^6/uL (3.5-6.1); RED CELL DISTRIBUTION WIDTH 13.8 % (11.5-14.5); WHITE BLOOD COUNT 10.7 10^3/uL (4.5-11.0)
[2018-06-20 04:24] VITALS: RESP 18
[2018-06-20 04:47] LABS: PH,URINE 7.5 (4.7-8.0); URINE BILIRUBIN NEGATIVE (NEGATIVE); URINE BLOOD MODERATE (NEGATIVE); URINE GLUCOSE (UA) NEGATIVE (NEGATIVE); URINE LEUKOCYTE ESTERASE NEGATIVE Leu/uL (NEGATIVE); URINE PROTEIN TRACE mg/dL (<30 mg/dL); URINE UROBILINOGEN 0.2 E.U./dL (<1 E.U./dL)
[2018-06-20 04:49] LABS: URINE COLOR YELLOW (YELLOW)
[2018-06-20 04:50] LABS: URINE APPEARANCE CLEAR (CLEAR)
[2018-06-20 05:06] LABS: URINE RBC 15 - 20 /hpf (0-2); URINE WBC 0 - 2 /hpf (0-6)
[2018-06-20 05:52] LABS: BARBITURATES, UR NEGATIVE (NEGATIVE); BENZODIAZEPINES, UR NEGATIVE (NEGATIVE); OPIATES, UR NEGATIVE (NEGATIVE); PHENCYCLIDINE, UR NEGATIVE (NEGATIVE)
[2018-06-20 06:02] VITALS: BP 112/68; PULSE 92; O2SAT 100
--- NOTE | 2018-06-20 20:09 | CARD ---
APPROVED REPORT Date of service: 06/20/2018 EKG Measurement Heart [id number] <Conclusion> Sinus tachycardia Nonspecific ST abnormality Abnormal ECG
== END 2018-06-20 05:35 | disposition home or self-care (01) ==
LOC: ED 01:54
DX: F41.9 Anxiety disorder, unspecified (principal); R00.0 Tachycardia, unspecified; I10 Essential (primary) hypertension; E11.9 Type 2 diabetes mellitus without complications; D64.9 Anemia, unspecified